=== PATIENT | male | born 1955 | race Caucasian/White ===

== ENCOUNTER → 2016-08-14 | Outpatient (CLI) | payer OTHER ==
[~2016-08-14] MED LIST: ASPI81TA28 PO; IBUP1CAP9 PO; IRON PO; JNV100 PO; LISINOPRIL-HCTZ PO; LPT40 PO; METF-384 PO; METH1TAB66 PO; MULTTAB PO; OMEP20CA9 PO
[2016-08-14 11:24] LABS: ALKALINE PHOSPHATASE 71 U/L (45-117); ALT/SGPT 60 U/L (12-78); AST/SGOT 28 U/L (15-37); BLOOD UREA NITROGEN 18 mg/dl (7-18); BUN/CREATININE RATIO 18.2 (10-20); CALCIUM 9.6 mg/dl (8.5-10.1); CARBON DIOXIDE 27 mmol/L (21-32); CHLORIDE 101 mmol/L (98-107); CHOLESTEROL 197 mg/dl (0-200); CHOLESTEROL/HDL RATIO 5.3; CREATININE 0.97 mg/dl (0.60-1.40); GLUCOSE 168 mg/dl (70-99); HDL CHOLESTEROL 37 mg/dl; POTASSIUM 3.9 mmol/L (3.5-5.1); SODIUM 139 mmol/L (136-145); TRIGLYCERIDES 674 mg/dl (0-150)
[2016-08-14 11:42] LABS: ESTIMATED AVERAGE GLUCOSE 209 mg/dl; HA1C FLAG Normal (Normal)
== END | disposition home or self-care (01) ==
LOC: C.LAB 09:46
PROVIDERS: ATTEND Internal Medicine
DX: E11.9 Type 2 diabetes mellitus without complications (principal); I10 Essential (primary) hypertension; E78.5 Hyperlipidemia, unspecified

== ENCOUNTER 2018-08-26 11:58 | Inpatient (IN) ==
[2018-08-26 12:56] LABS: Basophils # (auto) 0.04 K/uL (0-0.2); Basophils % (auto) 0.6 %; Eosinophils # (auto) 0.13 K/uL (0-0.5); Eosinophils % (auto) 1.9 %; Hematocrit (blood only) 41.3 % (42-52); Hemoglobin 13.7 g/dL (14.0-18.0); Immature Granulocytes # (auto) 0.01 K/uL (0.00-0.02); Immature Granulocytes % (auto) 0.1 %; Mean Corpuscular Hgb Conc 33.2 g/dL (32-36); Mean Corpuscular Volume 94.5 fL (80-100); Monocytes # (auto) 0.32 K/uL (0.11-0.59); Monocytes % (auto) 4.7 %; Neutrophils # (auto) 4.17 K/uL (1.4-6.5); Neutrophils % (auto) 61.7 %; Platelet Count 227 K/uL (130-400); RDW Coefficient of Variation 13.9 % (11.5-14.5); RDW Standard Deviation 47.8 fL (36.4-46.3); Red Blood Count 4.37 M/uL (4.7-6.1); White Blood Count 6.77 K/uL (4.8-10.8)
--- NOTE | 2018-08-26 13:01 | XRay Report ---
XR chest 1V portable CLINICAL HISTORY: Chest Pain COMPARISON STUDY: No previous studies for comparison. FINDINGS: Lung volumes are normal. There is no pneumothorax or pleural effusion. There is no consolid ation. Note is made of moderate cardiomegaly without evidence for pulmonary edema. IMPRESSION: 1. No acute cardiopulmonary findings. 2. Moderate cardiomegaly. Electronically signed by: Devon Sloan M.D. 08/26/2018 1:00 PM
[2018-08-26 13:06] LABS: INR 1.2 (0.9-1.1); Partial Thromboplastin Ratio 0.9; Partial Thromboplastin Time 23.7 Seconds (21.0-31.0); Prothrombin Time 12.4 Seconds (9.0-12.0)
[2018-08-26 13:14] LABS: Albumin Level 3.3 gm/dl (3.4-5.0); BUN Creatinine Ratio 15.1 (10-20); Calcium 8.7 mg/dl (8.5-10.1); Creatinine Clr Calc Pharmacy 79.6 ml/min; Est GFR (African American) 81.7; Est GFR (Non-African American) 70.5; Potassium 3.7 mmol/L (3.5-5.1)
[2018-08-26 13:24] LABS: Bilirubin,Total 0.5 mg/dl (0.2-1); Globulin 3.2 gm/dl (2.5-4.0); Total Protein 6.5 gm/dl (6.4-8.2); Troponin I 0.088 ng/ml (0-0.045)
--- NOTE | 2018-08-26 15:44 | Emergency Department Note ---
Entered by Marium Mcmillan acting as a scribe for History of Present Illness General Chief complaint: Cardiac Assessment Stated complaint: REF BY CARDIO HEART FAILURE SOB EDEMA Time Seen by Provider: 08/26/18 12:14 Source: patient History of Present Illness Onset (ago): day(s) (a few days ago) Location: chest Pain Consistency: + other (worsening) Quality: + other (shortness of breath) Exacerbated By: + other (lying flat) Associated symptoms: + denies other symptoms (abdominal pain) and + other (increased leg swelling, feeling bloated, increased weight); no chest pain and no fever/chills The patient is a 63 year old male who presents to the Emergency Room with complaints of worsening shortness of breath starting a few days ago. The patient states that he has a history of a heart attack. He states that at the time he didnt even know he had had one. He reports that for the last few days he has been having a harder time breathing and increased swelling in his legs. He states that his shortness of breath is worse when lying flat. He states that he went to Dr. Olguin today and they sent him here because they think that he needs to be admitted. The patient complains of feeling bloated and increased weight. The patient denies chest pain, abdominal pain, fever, chills, and missing his Lasix or Spironolactone. Home Medications Home Medications Medication Instructions Recorded Confirmed Type Cbd Oil 30 mg PO DAILY 08/26/18 08/26/18 History Hemp 170 mg PO DAILY 08/26/18 08/26/18 History aspirin [Aspir-81] 81 mg PO DAILY 08/26/18 08/26/18 History atorvastatin 40 mg PO DAILY 08/26/18 08/26/18 History fenofibrate nanocrystallized 145 mg PO DAILY 08/26/18 08/26/18 History furosemide 40 mg PO BID 08/26/18 08/26/18 History insulin glargine [Lantus Solostar 50 unit SUBCUT DAILY 08/26/18 08/26/18 History U-100 Insulin] [id number] 2 cap PO DAILY 08/26/18 08/26/18 History [krill oil] lisinopril 20 mg PO DAILY 08/26/18 08/26/18 History metformin 500 mg PO BID 08/26/18 08/26/18 History methylcellulose (laxative) [Fiber 500 mg PO BID 08/26/18 08/26/18 History Laxative (methylcellulo)] metoprolol succinate 25 mg PO DAILY 08/26/18 08/26/18 History multivitamin 1 tab PO DAILY 08/26/18 08/26/18 History omeprazole 20 mg PO HS 08/26/18 08/26/18 History spironolactone 12.5 mg PO BID 08/26/18 08/26/18 History trazodone 100 mg PO HS 08/26/18 08/26/18 History Allergies Allergy/AdvReac Type Severity Reaction Status Date / Time No Known Allergies Allergy Verified 08/26/18 14:09 Past Med/Surg History Surgical History Fracture of fibula, proximal (Resolved) s/p repair Family History Other Heart disease Hypertension Social History Preferred Language: Turkish Communication Ability: Effective 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 and A total of 10 systems reviewed and were otherwise negative Physical Exam Vital Signs Vital Signs - 24 hr 08/26/18 12:07 08/26/18 13:21 08/26/18 16:07 Temperature 36.7 C Temperature Source Oral Sepsis Recent Fever Within 48 Hours No Sepsis New/Unexplained Change in Mental Status No Sepsis Action Taken by Nursing No Action Required Pulse Rate 111 H 103 H Pulse Rate [Left Brachial] Pulse Rate [Right Finger] 103 H Pulse Rhythm [Right Finger] Regular Pulse Strength [Right Finger] Normal Respiratory Rate 22 16 16 Respiratory Effort / Characteristics Non-Labored Non-Labored Respiratory Depth Normal Normal Respiratory Pattern Regular Regular Blood Pressure 111/77 130/87 Blood Pressure [Right Arm] 110/80 Blood Pressure Mean 88 Blood Pressure Mean [Right Arm] 90 Blood Pressure Position Sitting Blood Pressure Position [Right Arm] Lying Pulse Oximetry 97 96 95 Oxygen Delivery Method Room Air Room Air Room Air 08/26/18 16:25 08/26/18 19:20 08/26/18 19:23 Temperature 36.8 C 36.7 C Temperature Source Oral Oral Sepsis Recent Fever Within 48 Hours Sepsis New/Unexplained Change in Mental Status Sepsis Action Taken by Nursing Pulse Rate Pulse Rate [Left Brachial] Pulse Rate [Right Finger] 105 H 98 H Pulse Rhythm [Right Finger] Regular Pulse Strength [Right Finger] Normal Respiratory Rate 20 19 Respiratory Effort / Characteristics Non-Labored Spontaneous SOB on Exertion SOB on Exertion Respiratory Depth Normal Normal Normal Respiratory Pattern Regular Regular Blood Pressure Blood Pressure [Right Arm] 125/86 128/76 Blood Pressure Mean Blood Pressure Mean [Right Arm] 99 93 Blood Pressure Position Blood Pressure Position [Right Arm] Sitting Lying Pulse Oximetry 97 94 Oxygen Delivery Method Room Air Room Air 08/26/18 23:05 08/26/18 23:55 08/27/18 04:00 Temperature 37.0 C 36.8 C Temperature Source Oral Oral Sepsis Recent Fever Within 48 Hours Sepsis New/Unexplained Change in Mental Status Sepsis Action Taken by Nursing Pulse Rate Pulse Rate [Left Brachial] Pulse Rate [Right Finger] 95 H 98 H Pulse Rhythm [Right Finger] Pulse Strength [Right Finger] Respiratory Rate 18 18 Respiratory Effort / Characteristics Non-Labored Spontaneous Respiratory Depth Normal Normal Normal Respiratory Pattern Regular Blood Pressure Blood Pressure [Right Arm] 96/58 L 102/76 Blood Pressure Mean Blood Pressure Mean [Right Arm] 70 84 Blood Pressure Position Blood Pressure Position [Right Arm] Lying Sitting Pulse Oximetry 97 96 Oxygen Delivery Method Room Air Room Air 08/27/18 08:00 Temperature 36.8 C Temperature Source Oral Sepsis Recent Fever Within 48 Hours Sepsis New/Unexplained Change in Mental Status Sepsis Action Taken by Nursing Pulse Rate Pulse Rate [Left Brachial] 96 H Pulse Rate [Right Finger] Pulse Rhythm [Right Finger] Pulse Strength [Right Finger] Respiratory Rate 16 Respiratory Effort / Characteristics Respiratory Depth Respiratory Pattern Blood Pressure Blood Pressure [Right Arm] 102/79 Blood Pressure Mean Blood Pressure Mean [Right Arm] 86 Blood Pressure Position Blood Pressure Position [Right Arm] Semi-fowlers Pulse Oximetry 93 Oxygen Delivery Method Room Air GENERAL: Patient is awake, alert, and in no acute distress. Patient is resting comfortably and showing no signs of anxiety. EYES: The conjunctivae are clear. The pupils are round and reactive. EARS, NOSE, MOUTH AND THROAT: The nose is without any evidence of deformity. Mucous membranes are moist. Tongue is midline. NECK: The neck is nontender and supple. RESPIRATORY: Diminished throughout with rales at both bases. CARDIOVASCULAR: Regular rate and rhythm noted. There are no murmurs rubs or gallops. Normal S1, normal S2. GASTROINTESTINAL: The abdomen is soft. Bowel sounds are present in all quadrants. Abdomen is nontender. MUSCULOSKELETAL/EXTREMITIES: There is no evidence of gross deformity. Full range of motion is noted in the hips and shoulders. SKIN: There is no obvious evidence of any rash. Bialteral pedal edema was noted. There is no petechiae, pallor or cyanosis noted. NEUROLOGIC: Patient is awake alert and oriented x3. Course 1219: The patient was evaluated in room A10, and a complete history and physical examination were performed. 1425: I reviewed the patient's case with YAMILA Rose. She will evaluate the patient for further management. 1432: I reevaluated the patient and updated him on his test results. I discussed the treatment plan with him. He verbally agrees and understands. Consultations Consultation #1: I reviewed the patient's case with YAMILA Rose. She will evaluate the patient for further management. Time: 14:25 Administered Medications Aspirin (Ecotrin Ectab) 81 mg PO DAILY LOLLY Stop: 09/26/18 08:59 Last Admin: 08/27/18 08:14 Dose: 81 mg Documented by: [id number] Atorvastatin Calcium (Lipitor) 40 mg PO DAILY LOLLY Stop: 09/26/18 08:59 Last Admin: 08/27/18 08:15 Dose: 40 mg Documented by: [id number] Enoxaparin Sodium (Lovenox) 40 mg SQ Q24H LOLLY Stop: 09/25/18 20:59 Last Admin: 08/26/18 20:40 Dose: 40 mg Documented by: [id number] Fenofibrate (Tricor) 145 mg PO DAILY LOLLY Stop: 09/26/18 08:59 Last Admin: 08/27/18 08:15 Dose: 145 mg Documented by: [id number] Fish Oil (Ponemah-3 (Purified Fish Oil)) 2 gm PO DAILY LOLLY Stop: 09/26/18 08:59 Last Admin: 08/27/18 08:14 Dose: 2 gm Documented by: [id number] Furosemide 40 mg/ Syringe 4 mls @ 4 mls/min IV BID17 LOLLY Stop: 09/25/18 15:44 Last Admin: 08/27/18 08:14 Dose: 4 mls/min Documented by: [id number] Admin: 08/26/18 18:15 Dose: Not Given Documented by: [id number] Admin: 08/26/18 15:54 Dose: 4 mls/min Documented by: [id number] Insulin Aspart (Novolog Flexpen) 0 units SC ACHS LOLLY Stop: 09/25/18 20:59 Last Admin: 08/27/18 08:18 Dose: 7 units Documented by: [id number] Cosigned by: [id number] Admin: 08/26/18 20:42 Dose: Not Given Documented by: [id number] Cosigned by: [id number] Insulin Glargine (Lantus Solostar Pen) 0 - 20 units SC BID LOLLY Stop: 09/25/18 20:59 Last Admin: 08/27/18 08:17 Dose: Not Given Documented by: [id number] Cosigned by: [id number] Admin: 08/26/18 20:44 Dose: Not Given Documented by: [id number] Cosigned by: [id number] Lisinopril (Zestril) 20 mg PO DAILY LOLLY Stop: 09/26/18 08:59 Last Admin: 08/27/18 08:15 Dose: 20 mg Documented by: [id number] Methylcellulose (Citrucel) 15 gm PO BID LOLLY Stop: 09/25/18 20:59 Last Admin: 08/27/18 08:19 Dose: 15 gm Documented by: [id number] Admin: 08/26/18 20:43 Dose: 15 gm Documented by: [id number] Metoprolol Succinate (Toprol Xl) 25 mg PO DAILY [facility] Stop: 09/26/18 08:59 Last Admin: 08/27/18 08:16 Dose: 25 mg Documented by: [id number] Multivitamins (Multivitamin Tab) 1 tab PO DAILY LOLLY Stop: 09/26/18 08:59 Last Admin: 08/27/18 08:16 Dose: 1 tab Documented by: [id number] Cbd 30mg / Hemp 170mg Cap: Non- Formulary Patient's Own Med 1 ea PO DAILY [facility]; Protocol Stop: 09/26/18 08:59 Last Admin: 08/27/18 08:14 Dose: 1 tab Documented by: [id number] Pantoprazole Sodium (Protonix) 40 mg PO [facility] Stop: 09/25/18 20:59 Last Admin: 08/26/18 20:41 Dose: 40 mg Documented by: [id number] Potassium Chloride (Klor-Con M10) 10 meq PO BID17 [facility] Stop: 09/25/18 16:59 Last Admin: 08/27/18 08:49 Dose: 10 meq Documented by: [id number] Admin: 08/26/18 15:54 Dose: 10 meq Documented by: [id number] Spironolactone (Aldactone) 12.5 mg PO BID [facility] Stop: 09/25/18 20:59 Last Admin: 08/27/18 08:15 Dose: 12.5 mg Documented by: [id number] Admin: 08/26/18 20:41 Dose: 12.5 mg Documented by: [id number] Trazodone HCl (Desyrel) 100 mg PO [facility] Stop: 09/25/18 20:59 Last Admin: 08/26/18 20:42 Dose: 100 mg Documented by: [id number] Discontinued Medications Furosemide (Lasix) Confirm Administered Dose 40 mg IV .STK-MED ONE Stop: 08/26/18 15:49 Last Admin: 08/26/18 15:55 Dose: Not Given Documented by: [id number] Non-Formulary Medication (Hemp) 170 mg PO DAILY [facility] Stop: 09/25/18 16:59 Last Admin: 08/26/18 18:17 Dose: Not Given Documented by: [id number] Potassium Chloride (Klor-Con M10) Confirm Administered Dose 10 meq PO .STK-MED ONE Stop: 08/26/18 15:51 Last Admin: 08/26/18 15:54 Dose: Not Given Documented by: [id number] Medical Decision Making Differential Diagnosis Etiologies such as pneumonia, COPD, reactive airway disease, CHF, cardiac ischemia, pulmonary embolism, pneumothorax, musculoskeletal, infections, gastrointestinal, as well as others were entertained. Medical Records Attestation: I reviewed the patient's medical records. Home Medications Current Medication List: was personally reviewed by me Laboratory Data Attestation: I reviewed the patient's lab results. Result diagrams: 08/27/18 05:29 04/02/19 05:29 Lab Results 08/26/18 08/26/18 08/26/18 Range/Units 12:39 12:39 12:44 WBC 6.77 (4.8-10.8) K/uL RBC 4.37 L (4.7-6.1) M/uL Hgb 13.7 L (14.0-18.0) g/dL Hct 41.3 L (42-52) % MCV 94.5 (80-100) fL MCH 31.4 (25-34) pg MCHC 33.2 (32-36) g/dL RDW Std Deviation 47.8 H (36.4-46.3) fL RDW Coeff of Cori 13.9 (11.5-14.5) % Plt Count 227 (130-400) K/uL MPV 10.0 (7.4-10.4) fL Immature Gran % (Auto) 0.1 % Neut % (Auto) 61.7 % Lymph % (Auto) 31.0 % [place] % (Auto) 4.7 % Eos % (Auto) 1.9 % Baso % (Auto) 0.6 % Immature Gran # (Auto) 0.01 (0.00-0.02) K/uL Neut # (Auto) 4.17 (1.4-6.5) K/uL Lymph # (Auto) 2.10 (1.2-3.4) K/uL [place] # (Auto) 0.32 (0.11-0.59) K/uL Eos # (Auto) 0.13 (0-0.5) K/uL Baso # (Auto) 0.04 (0-0.2) K/uL PT 12.4 H (9.0-12.0) Seconds INR 1.2 H (0.9-1.1) APTT 23.7 (21.0-31.0) Seconds PTT Ratio 0.9 Sodium 143 (136-145) mmol/L Potassium 3.7 (3.5-5.1) mmol/L Chloride 108 H (98-107) mmol/L Carbon Dioxide 28 (21-32) mmol/L Anion Gap 7.0 (3-11) BUN 17 (7-18) mg/dl Creatinine 1.12 (0.6-1.4) mg/dl Est Cr Clr Drug Dosing 79.6 ml/min Est GFR ( Amer) 81.7 Est GFR (Non-Af Amer) 70.5 BUN/Creatinine Ratio 15.1 (10-20) Glucose 125 H (70-99) mg/dl POC Glucose (70-99) Calcium 8.7 (8.5-10.1) mg/dl Total Bilirubin 0.5 (0.2-1) mg/dl AST 33 (15-37) U/L ALT 65 (12-78) U/L Alkaline Phosphatase 55 (45-117) U/L Troponin I 0.088 H* (0-0.045) ng/ml NT-Pro-B Natriuret Pep (0-900) pg/ml Total Protein 6.5 (6.4-8.2) gm/dl Albumin 3.3 L (3.4-5.0) gm/dl Globulin 3.2 (2.5-4.0) gm/dl Albumin/Globulin Ratio 1.0 (0.9-2) Lipase 259 (73-393) U/L 08/26/18 08/26/18 08/26/18 Range/Units 12:44 16:51 18:38 WBC (4.8-10.8) K/uL RBC (4.7-6.1) M/uL Hgb (14.0-18.0) g/dL Hct (42-52) % MCV (80-100) fL MCH (25-34) pg MCHC (32-36) g/dL RDW Std Deviation (36.4-46.3) fL RDW Coeff of Cori (11.5-14.5) % Plt Count (130-400) K/uL MPV (7.4-10.4) fL Immature Gran % (Auto) % Neut % (Auto) % Lymph % (Auto) % [place] % (Auto) % Eos % (Auto) % Baso % (Auto) % Immature Gran # (Auto) (0.00-0.02) K/uL Neut # (Auto) (1.4-6.5) K/uL Lymph # (Auto) (1.2-3.4) K/uL [place] # (Auto) (0.11-0.59) K/uL Eos # (Auto) (0-0.5) K/uL Baso # (Auto) (0-0.2) K/uL PT (9.0-12.0) Seconds INR (0.9-1.1) APTT (21.0-31.0) Seconds PTT Ratio Sodium (136-145) mmol/L Potassium (3.5-5.1) mmol/L Chloride (98-107) mmol/L Carbon Dioxide (21-32) mmol/L Anion Gap (3-11) BUN (7-18) mg/dl Creatinine (0.6-1.4) mg/dl Est Cr Clr Drug Dosing ml/min Est GFR ( Amer) Est GFR (Non-Af Amer) BUN/Creatinine Ratio (10-20) Glucose (70-99) mg/dl POC Glucose 108 H (70-99) Calcium (8.5-10.1) mg/dl Total Bilirubin (0.2-1) mg/dl AST (15-37) U/L ALT (12-78) U/L Alkaline Phosphatase (45-117) U/L Troponin I 0.095 H* (0-0.045) ng/ml NT-Pro-B Natriuret Pep 4849 H (0-900) pg/ml Total Protein (6.4-8.2) gm/dl Albumin (3.4-5.0) gm/dl Globulin (2.5-4.0) gm/dl Albumin/Globulin Ratio (0.9-2) Lipase (73-393) U/L 08/26/18 08/27/18 08/27/18 Range/Units 20:42 00:07 05:29 WBC 6.70 (4.8-10.8) K/uL RBC 4.38 L (4.7-6.1) M/uL Hgb 13.3 L (14.0-18.0) g/dL Hct 41.3 L (42-52) % MCV 94.3 (80-100) fL MCH 30.4 (25-34) pg MCHC 32.2 (32-36) g/dL RDW Std Deviation 48.2 H (36.4-46.3) fL RDW Coeff of Cori 13.9 (11.5-14.5) % Plt Count 215 (130-400) K/uL MPV 9.9 (7.4-10.4) fL Immature Gran % (Auto) % Neut % (Auto) % Lymph % (Auto) % [place] % (Auto) % Eos % (Auto) % Baso % (Auto) % Immature Gran # (Auto) (0.00-0.02) K/uL Neut # (Auto) (1.4-6.5) K/uL Lymph # (Auto) (1.2-3.4) K/uL [place] # (Auto) (0.11-0.59) K/uL Eos # (Auto) (0-0.5) K/uL Baso # (Auto) (0-0.2) K/uL PT (9.0-12.0) Seconds INR (0.9-1.1) APTT (21.0-31.0) Seconds PTT Ratio Sodium (136-145) mmol/L Potassium (3.5-5.1) mmol/L Chloride (98-107) mmol/L Carbon Dioxide (21-32) mmol/L Anion Gap (3-11) BUN (7-18) mg/dl Creatinine (0.6-1.4) mg/dl Est Cr Clr Drug Dosing ml/min Est GFR ( Amer) Est GFR (Non-Af Amer) BUN/Creatinine Ratio (10-20) Glucose (70-99) mg/dl POC Glucose 122 H (70-99) Calcium (8.5-10.1) mg/dl Total Bilirubin (0.2-1) mg/dl AST (15-37) U/L ALT (12-78) U/L Alkaline Phosphatase (45-117) U/L Troponin I 0.119 H* (0-0.045) ng/ml NT-Pro-B Natriuret Pep (0-900) pg/ml Total Protein (6.4-8.2) gm/dl Albumin (3.4-5.0) gm/dl Globulin (2.5-4.0) gm/dl Albumin/Globulin Ratio (0.9-2) Lipase (73-393) U/L 08/27/18 08/27/18 Range/Units 05:29 07:09 WBC (4.8-10.8) K/uL RBC (4.7-6.1) M/uL Hgb (14.0-18.0) g/dL Hct (42-52) % MCV (80-100) fL MCH (25-34) pg MCHC (32-36) g/dL RDW Std Deviation (36.4-46.3) fL RDW Coeff of Cori (11.5-14.5) % Plt Count (130-400) K/uL MPV (7.4-10.4) fL Immature Gran % (Auto) % Neut % (Auto) % Lymph % (Auto) % [place] % (Auto) % Eos % (Auto) % Baso % (Auto) % Immature Gran # (Auto) (0.00-0.02) K/uL Neut # (Auto) (1.4-6.5) K/uL Lymph # (Auto) (1.2-3.4) K/uL [place] # (Auto) (0.11-0.59) K/uL Eos # (Auto) (0-0.5) K/uL Baso # (Auto) (0-0.2) K/uL PT (9.0-12.0) Seconds INR (0.9-1.1) APTT (21.0-31.0) Seconds PTT Ratio Sodium 143 (136-145) mmol/L Potassium 3.7 (3.5-5.1) mmol/L Chloride 106 (98-107) mmol/L Carbon Dioxide 30 (21-32) mmol/L Anion Gap 7.0 (3-11) BUN 19 H (7-18) mg/dl Creatinine 1.13 (0.6-1.4) mg/dl Est Cr Clr Drug Dosing 78.9 ml/min Est GFR ( Amer) 80.9 Est GFR (Non-Af Amer) 69.8 BUN/Creatinine Ratio 17.0 (10-20) Glucose 84 (70-99) mg/dl POC Glucose 83 (70-99) Calcium 8.7 (8.5-10.1) mg/dl Total Bilirubin (0.2-1) mg/dl AST (15-37) U/L ALT (12-78) U/L Alkaline Phosphatase (45-117) U/L Troponin I (0-0.045) ng/ml NT-Pro-B Natriuret Pep (0-900) pg/ml Total Protein (6.4-8.2) gm/dl Albumin (3.4-5.0) gm/dl Globulin (2.5-4.0) gm/dl Albumin/Globulin Ratio (0.9-2) Lipase (73-393) U/L Imaging Data Radiologist's Impression: Radiology results as stated below per my review and the radiologist's interpretation: XR chest 1V portable CLINICAL HISTORY: Chest Pain COMPARISON STUDY: No previous studies for comparison. FINDINGS: Lung volumes are normal. There is no pneumothorax or pleural effusion. There is no consolidation. Note is made of moderate cardiomegaly without evidence for pulmonary edema. IMPRESSION: 1. No acute cardiopulmonary findings. 2. Moderate cardiomegaly. Electronically signed by: Devon Sloan M.D. 08/26/2018 1:00 PM ECG Data Attestation: I personally reviewed and interpreted this ECG as follows: Indication: SOB/dyspnea Rate (beats per minute): 104 Rhythm: sinus tachycardia Findings: + ST depression (lateral); no PAC, no PVC and no ectopy Comparison ECG Date: from (04/20/2014) Change: the following changes noted Blood Pressure Blood Pressure Findings: Normal blood pressure Blood Pressure Disposition: did not require urgent referral MDM Narrative The patient is a 63-year-old male who presented to the emergency department from the cardiology office for an evaluation of orthopnea dyspnea on exertion lower extremity edema as well as vague chest discomfort. The patient was found to have an EKG with ST segment abnormalities but it appears similar to previous. I discussed the patient's laboratory and radiographic studies with him. He was found to have a mildly elevated troponin. For this reason I discussed his case with the on-call [facility] hospitalist group. They have agreed to evaluate the patient in the emergency department for further management and disposition. Impression & Plan Chest pain, FORRESTER (dyspnea on exertion), Elevated troponin Discharge Plan Visit Data *Final* Discharge Date/Time: 08/26/18 16:07 Chief Complaint: Cardiac Assessment Stated Complaint: REF BY CARDIO HEART FAILURE SOB EDEMA ED Provider: Mars Abdul Discharge Problem: Chest pain, FORRESTER (dyspnea on exertion), Elevated troponin Patient Disposition: Admitted As Inpatient Discharge Instructions Interventions: ED Discharge Assessment Last Done: 08/26/18 16:07 Discharge Problem: Chest pain Qualifiers: Chest pain type: unspecified Qualified Code(s): R07.9 - Chest pain, unspecified The scribe's documentation has been prepared under my direction and personally reviewed by me in its entirety. I confirm that the note above accurately reflects all work, treatment, procedures, and medical decision making performed by me.
[2018-08-26] MEDS ORDERED: FUROSEMIDE 40 MG/4 ML VIAL IV ONE (15:48)
[2018-08-26] MEDS ORDERED: POTASSIUM CHLORIDE 10 MEQ TABCR PO ONE (15:50)
[2018-08-26] MEDS: POTASSIUM CHLORIDE 10 MEQ TABCR PO SCH (15:54)
[2018-08-26] MEDS: FUROSEMIDE 40 MG in SYRINGE 0 ML IV SCH ×2 (15:54→18:15)
--- NOTE | 2018-08-26 15:54 | History & Physical Report ---
Date of Service August 26, 2018 Assessment & Plan (1) Combined systolic and diastolic heart failure, acute: (2) Idiopathic cardiomyopathy: This is a 63yo M with a PMH of mixed systolic and diastolic HF, DM II, HTN, HLD, GERD and MDD who presents with dyspnea at rest and BLE edema x 4 days and was found to have acutely decompensated CHF. -Patient with 10 lb weight gain, dyspnea on exertion, orthopnea, PND, BLE edema -BNP elevated at 4,849, troponin elevated at 0.088 -EKG with sinus tachycardia, non-specific ST and T wave changes (no change). CXR with cardiomegaly, no overt pulmonary edema -Echo from Jun 2018: Mildly dilated LV chamber size with normal wall thickness. Severely reduced LV systolic function with severe global hypokinesis. Calculated LV ejection Fraction = 24% (bi-plane method of discs). Grade III diastolic dysfunction (restrictive physiology). Pulmonary hypertension is present. -IV Lasix 40mg BID, continue PO spironolactone -Trend troponin, repeat labs and ECG in AM -Restrict fluid intake, monitor daily weights -Cardiology consulted (3) Elevated troponin: Troponin elevated at 0.088 in the setting of acute CHF -No chest pain or EKG changes -Discussed with cardiology. We will continue to trend troponin but no need to initiate IV heparin at this time (4) Type 2 diabetes mellitus: A1c of 7.8 in Jun 2018 -Hold home agents -Basal/bolus insulin per protocol while in-patient -BSG AC HS (5) Hypertension: Normotensive. Continue lisinopril, Toprol (6) Hx of supraventricular tachycardia: No SVT on initial EKG. -Monitor on telemetry. Continue Toprol (7) Hyperlipidemia: Continue statin (8) GERD (gastroesophageal reflux disease): Continue PPI (9) MDD (major depressive disorder): Continue CBD/Hemp supplement once verified and labeled by pharmacy DVT Ppx: SQ lovenox Code status: FULL PCP: Angelina Dispo: Observation telemetry. Plan to return home once medically stable. Patient seen in collaboration with Dr. Flores. Please see addendum. History of Present Illness Chief Complaint: dyspnea on exertion Primary Care Provider: Annika Alfaro DO This is a 63yo M with a PMH of mixed systolic and diastolic HF, DM II, HTN, HLD, GERD and MDD who presents with dyspnea at rest and BLE edema x 4 days. Patient was diagnosed with decompensated heart failure in June 2018 and is a patient of Dr. Olguin. TTE from this time demonstrates severely reduced left ventricular systolic function with severe global hypokinesis and EF of 24%. Also with grade 3 diastolic dysfunction and pulmonary hypertension. Underwent nuclear stress testing for further definition of cardiomyopathy and stress test demonstrated large fixed perfusion defect without ischemia. He had no anginal symptoms at fo llow-up appointment. Was seen in clinic by YAMILA Brown last Sunday and was found to be in acute decompensated heart failure, with dyspnea on exertion and a 10 pound weight gain. Lasix dose was increased to 40 mg p.o. twice daily as well as spironolactone increased to 12.5 mg twice daily over the weekend. Dyspnea on exertion has worsened over the weekend and patient has developed nonproductive cough, orthopnea, PND and worsening bilateral lower extremity swelling up to hips. Was sent in from clinic today by YAMILA Brown for further management with IV Lasix. Patient has a strong family history of heart failure and possible nonischemic cardiomyopathy. Was referred to genetic counselor for testing, but as of 08/23/18 no significant genetic changes were identified that have a known association to increased risk for hereditary cardiomyopathy. Patient is visibly short of breath, with HR of 103. Oxygen saturation is 96% on room air. Has been eating reduced sodium diet but not limiting fluids. H/o heavy etoh use but reportedly quit in Jun 2018. No fever, chills, lightheadedness, headache, near- syncope, chest pain, palpitations, wheezing, nausea, vomiting, abdominal pain, diarrhea or constipation. Allergies Allergy/AdvReac Type Severity Reaction Status Date / Time No Known Allergies Allergy Verified 08/26/18 14:09 Home Medications Home Medications Medication Instructions Recorded Confirmed Type Cbd Oil 30 mg PO DAILY 08/26/18 08/26/18 History Hemp 170 mg PO DAILY 08/26/18 08/26/18 History aspirin [Aspir-81] 81 mg PO DAILY 08/26/18 08/26/18 History atorvastatin 40 mg PO DAILY 08/26/18 08/26/18 History fenofibrate nanocrystallized 145 mg PO DAILY 08/26/18 08/26/18 History furosemide 40 mg PO BID 08/26/18 08/26/18 History insulin glargine [Lantus Solostar 50 unit SUBCUT DAILY 08/26/18 08/26/18 History U-100 Insulin] [id number] 2 cap PO DAILY 08/26/18 08/26/18 History [krill oil] lisinopril 20 mg PO DAILY 08/26/18 08/26/18 History metformin 500 mg PO BID 08/26/18 08/26/18 History methylcellulose (laxative) [Fiber 500 mg PO BID 08/26/18 08/26/18 History Laxative (methylcellulo)] metoprolol succinate 25 mg PO DAILY 08/26/18 08/26/18 History multivitamin 1 tab PO DAILY 08/26/18 08/26/18 History omeprazole 20 mg PO HS 08/26/18 08/26/18 History spironolactone 12.5 mg PO BID 08/26/18 08/26/18 History trazodone 100 mg PO HS 08/26/18 08/26/18 History Past Med/Surg History Surgical History Fracture of fibula, proximal (Resolved) s/p repair Family History Other Heart disease Hypertension Social History Preferred Language: Kiswahili Communication Ability: Effective Eyeglass Lens Grinder Required: No Beliefs That Will Affect Care: None marital status: Current Living Situation: Alone Current Living Situation Comment: live alone current occupational status: unemployed Other Information That Helps Us Care for You: No Feels Safe at Home: Yes Safety Concerns: Feels Safe At This Time Smoking Status: Never smoker Hx Alcohol Use: Yes Review of Systems All systems reviewed & are unremarkable except as noted in HPI & below Physical Exam Vital Signs (Past 24 Hours): Last Vital Signs Temp 36.7 C 08/26/18 12:07 Pulse 103 H 08/26/18 13:21 Resp 16 08/26/18 13:21 BP 110/80 08/26/18 13:21 Pulse Ox 96 08/26/18 13:21 Physical Exam: General Appearance: WD/WN, mild distress due to SOB when speaking, improved with sitting upright Head: normocephalic, atraumatic Eyes: normal inspection, PERRL, EOMI ENT: hearing grossly normal, pharynx normal (dry mucous membranes) Neck: supple, no JVD, no adenopathy Respiratory/Chest: Decreased air movement, bibasilar rales. No wheezes or rhonci. No respiratory distress or accessory muscle use Cardiovascular: tachycardic, regular rate, no murmur, normal peripheral pulses, 2+ pitting edema bilaterally to knee Abdomen/GI: normal bowel sounds, soft, non-tender to palpation Extremities/Musculoskelatal: normal inspection, no calf tenderness, normal capillary refill Neurologic/Psych: alert, normal mood/affect, oriented x 3 Skin: normal color, warm/dry Results & Data Laboratory Results Short CBC 08/26/18 Range/Units 12:39 WBC 6.77 (4.8-10.8) K/uL Hgb 13.7 L (14.0-18.0) g/dL Hct 41.3 L (42-52) % Plt Count 227 (130-400) K/uL BMP 08/26/18 12:44 Sodium 143 Potassium 3.7 Chloride 108 H Carbon Dioxide 28 BUN 17 Creatinine 1.12 Glucose 125 H Calcium 8.7 Cardiac Enzymes 08/26/18 Range/Units 12:44 Troponin I 0.088 H* (0-0.045) ng/ml Liver Function 08/26/18 Range/Units 12:44 Total Bilirubin 0.5 (0.2-1) mg/dl AST 33 (15-37) U/L ALT 65 (12-78) U/L Alkaline Phosphatase 55 (45-117) U/L Albumin 3.3 L (3.4-5.0) gm/dl Diagnostic Findings CXR: IMPRESSION: 1. No acute cardiopulmonary findings. 2. Moderate cardiomegaly. ECG Rhythm: sinus tachycardia Change: no significant change Additional Comments: non specific T wave abnormality in lateral leads Code Status & VTE Plan Code Status FULL Supervising Physician Co-Signing Physician Notes Patient is a 63-year-old male with history of CHF, DM II, depression and other problems presents with history of worsening shortness of breath, bilateral lower extremity edema, weight gain, orthopnea, PND which have been gradually worsening since 4 days duration. His last echo in 10/14/2018 showed severe global hypokinesis with EF of 24%. His recent stress test showed large fixed perfusion defect without ischemia. Currently he denies any chest pain, dizziness, nausea, fever or chills. Chest x-ray showed moderate cardiomegaly with no evidence of volume overload. On exam patient is moderately built and nourished, no apparent distress, normal breath sounds, +rales, S1-S2, no murmur, + tachycardia, 2-3+ b/l LE edema, alert awake and oriented, grossly no focal deficits. Patient will be admitted for management of acute on chronic CHF. Plan to start on IV Lasix 40 twice daily, continue Aldactone. Monitor I's and O's, daily weight, fluid restriction. [employer] Hcm Consultant consulted. Trend cardiac enzymes and repeat EKG in the morning. I personally reviewed the record. Patient is interviewed and examined at bedside. Patient's care is coordinated with Snow Ledezma PA-C. Please refer to the documentation above for details of patient's presentation and for discussion of other issues.
[2018-08-26] MEDS ORDERED: POLYETHYLENE (MIRALAX) 17 GM PACK PO PRN (16:36)
[2018-08-26] MEDS ORDERED: ACETAMINOPHEN 325 MG TAB PO PRN (16:36)
[2018-08-26] MEDS ORDERED: ONDANSETRON INJ 2 MG/ML 2 ML VIAL IV PRN (16:36)
[2018-08-26] MEDS ORDERED: HEMP PO SCH (17:00)
[2018-08-26] MEDS ORDERED: CBD OIL PO SCH (17:00)
[2018-08-26] MEDS ORDERED: GLUCOSE 40% GEL 15 GM TUBE PO PRN (17:09)
[2018-08-26] MEDS ORDERED: CARBOHYDRATES FOR HYPOGLYCEMIA PO PRN (17:09)
[2018-08-26] MEDS ORDERED: GLUCAGON FOR INJ 1 MG VIAL SQ PRN (17:09)
[2018-08-26] MEDS ORDERED: DEXTROSE 50% 50 ML SYRINGE IV PRN (17:09)
[2018-08-26] MEDS ORDERED: GLUCOSE 10 TABS/TUBE PO PRN (17:09)
[2018-08-26] MEDS: ENOXAPARIN INJ 40 MG/0.4 ML SYR SQ SCH (20:40)
[2018-08-26] MEDS: PANTOprazole 40 MG TAB PO SCH (20:41)
[2018-08-26] MEDS: SPIRONOLACTONE 25 MG TAB PO SCH (20:41)
[2018-08-26] MEDS: INSULIN ASPART 100 UNITS/ML 3 ML PEN SC SCH (20:42)
[2018-08-26] MEDS: TRAZODONE HCL 100 MG TAB PO SCH (20:42)
[2018-08-26] MEDS: METHYLCELLULOSE POWDER 454 GM JAR PO SCH (20:43)
[2018-08-26] MEDS: INSULIN GLARGINE SOLOSTAR 100 UNITS/ML 3 ML PEN SC SCH (20:44)
[2018-08-26] MEDS ORDERED: PNEUMOCOCCAL ADMINISTRATION CHARGE ONE (21:45)
[2018-08-26] MEDS ORDERED: PNEUMOCOCCAL POLYSACCHARIDES 25 MCG/0.5 ML VIAL/SYR IM ONE (21:45)
[2018-08-27 05:47] LABS: Hematocrit (blood only) 41.3 % (42-52); Hemoglobin 13.3 g/dL (14.0-18.0); Mean Corpuscular Hgb Conc 32.2 g/dL (32-36); Mean Corpuscular Volume 94.3 fL (80-100); Mean Platelet Volume 9.9 fL (7.4-10.4); Platelet Count 215 K/uL (130-400); RDW Coefficient of Variation 13.9 % (11.5-14.5); RDW Standard Deviation 48.2 fL (36.4-46.3); Red Blood Count 4.38 M/uL (4.7-6.1)
[2018-08-27 06:24] LABS: Calcium 8.7 mg/dl (8.5-10.1); Creatinine Clr Calc Pharmacy 78.9 ml/min; Est GFR (African American) 80.9; Est GFR (Non-African American) 69.8; Potassium 3.7 mmol/L (3.5-5.1)
[2018-08-27] MEDS: ASPIRIN 81 MG ECTAB PO SCH (08:14)
[2018-08-27] MEDS: HEMP PO SCH (08:14)
[2018-08-27] MEDS: FUROSEMIDE 40 MG in SYRINGE 0 ML IV SCH ×2 (08:14→20:15)
[2018-08-27] MEDS: OMEGA-3 (PURIFIED FISH OIL) 1 GM CAP PO SCH (08:14)
[2018-08-27] MEDS: CBD PO SCH (08:14)
[2018-08-27] MEDS: FENOFIBRATE NANOCRYSTALLIZED 145 MG TABLET PO SCH (08:15)
[2018-08-27] MEDS: SPIRONOLACTONE 25 MG TAB PO SCH ×2 (08:15→20:15)
[2018-08-27] MEDS: ATORVASTATIN 40 MG TAB PO SCH (08:15)
[2018-08-27] MEDS: METOPROLOL SUCC 25MG EXT REL TAB PO SCH (08:16)
[2018-08-27] MEDS: MULTIVITAMIN TAB PO SCH (08:16)
[2018-08-27] MEDS: INSULIN GLARGINE SOLOSTAR 100 UNITS/ML 3 ML PEN SC SCH ×2 (08:17→21:05)
[2018-08-27] MEDS: INSULIN ASPART 100 UNITS/ML 3 ML PEN SC SCH ×4 (08:18→20:27)
[2018-08-27] MEDS: METHYLCELLULOSE POWDER 454 GM JAR PO SCH ×2 (08:19→20:14)
[2018-08-27] MEDS: POTASSIUM CHLORIDE 10 MEQ TABCR PO SCH ×2 (08:49→17:00)
[2018-08-27] MEDS ORDERED: LISINOPRIL 20 MG TAB PO SCH (09:00)
--- NOTE | 2018-08-27 12:14 | Cardiology Consultation ---
Date of Consultation August 27, 2018 Assessment & Plan (1) Combined systolic and diastolic heart failure, acute: (2) Idiopathic cardiomyopathy: Patient is symptomatically improved having received 2 doses of IV furosemide. Continue current furosemide dose, 40 mg IV twice daily. Continue spironolactone dose of 2.5 mg twice daily and potassium supplementation. Continue metoprolol succinate 25 mg by mouth daily. I would speculate that his borderline sinus tachycardia is compensatory due to his low ejection fraction. He has been tolerating lisinopril. We will take this opportunity to hold his lisinopril and initiate Enstresto after 48 hrs of ACEI therapy. We will have outpatient cardiology clinic and start to work on prior authorization details so that this medication will hopefully be available for him as an outpatient. She has an apparent family history of nonischemic cardiomyopathy. He however has risk factors given his age, history of diabetes and dyslipidemia. His recent nuclear stress test suggestive of ischemic heart disease with large territory scar. After the patient's volume status is optimized, will consider proceeding with cardiac catheterization for definitive coronary anatomy this admission. Continue atorvastatin, fenofibrate, omega-3 fish oil. History of Present Illness Attending Physician: Fco Flores MD History of Present Illness Polo Quinn is a 63-year-old male seen in cardiology consultation per the request of Snow Ledezma PA-C of the [facility] hospitalist group for further management of acute on chronic heart failure with reduced ejection fraction. Patient has been seen in close outpatient congestive heart failure clinic by Lucretia Brown PA-C of our practice yesterday with noted ongoing symptoms of significant abdominal bloating, lower extremity swelling, and exertional shortness of breath that is been refractory to outpatient oral diuretic therapy. His weight had been 229 pounds on and had increased to 239 pounds as of 08/21/2018 and was 238 pounds yesterday 08/26/2018 despite increase in the furosemide dose from 20 mg daily to 40 mg daily. The patient received 40 mg of IV furosemide yesterday at 1554 and again this morning at 814 and feels markedly improved. 1.8 L of urine output recorded yesterday and conditional 1.9 L of urine output recorded thus far today. His admission weight was recorded to be 107.4 kg yesterday and he is down to 101.9 kg today. Telemetry reveals sinus rhythm in the range of 80 to 95 bpm. Past Cardiac History: The patient's cardiac history dates back to June,. An EKG performed due to concerns of shortness of breath on 07/17/2018 revealed sinus tachycardia at 102 bpm with diffuse nonspecific T wave abnormality. An echocardiogram performed 07/23/2018 revealed severe left ventricular chamber dilatation with severe global left ventricular hypokinesis, severe left ventricular systolic dysfunction, calculated LV EF 24%. Grade 3 diastolic dysfunction was noted. Mild mitral regurgitation and mild tricuspid regurgitation were noted with a calculated pulmonary artery systolic pressure that was elevated at 60 mmHg. The patient was therefore seen in acute cardiology consultation by Dr. Olguin of our practice and medication therapy was initiated. A nuclear stress test performed 08/06/2018 as an outpatient which had been interpreted by the undersigned revealed a large fixed anteroseptal, anterior, apical and inferior perfusion defect with sparing of the inferoseptal wall and anterolateral santos. The ejection fraction was corrected to be 35%. The patient is described a family history of what sounds like a nonischemic cardiomyopathy. Patient also notes history of significant alcohol intake last year when he was going through divorce. He states that he cut back on his alcohol in approximately March,. Allergies Allergy/AdvReac Type Severity Reaction Status Date / Time No Known Allergies Allergy Verified 08/26/18 14:09 Home Medications Home Medications Medication Instructions Recorded Confirmed Type Cbd Oil 30 mg PO DAILY 08/26/18 08/26/18 History Hemp 170 mg PO DAILY 08/26/18 08/26/18 History aspirin [Aspir-81] 81 mg PO DAILY 08/26/18 08/26/18 History atorvastatin 40 mg PO DAILY 08/26/18 08/26/18 History fenofibrate nanocrystallized 145 mg PO DAILY 08/26/18 08/26/18 History furosemide 40 mg PO BID 08/26/18 08/26/18 History insulin glargine [Lantus Solostar 50 unit SUBCUT DAILY 08/26/18 08/26/18 History U-100 Insulin] [id number] 2 cap PO DAILY 08/26/18 08/26/18 History [krill oil] lisinopril 20 mg PO DAILY 08/26/18 08/26/18 History metformin 500 mg PO BID 08/26/18 08/26/18 History methylcellulose (laxative) [Fiber 500 mg PO BID 08/26/18 08/26/18 History Laxative (methylcellulo)] metoprolol succinate 25 mg PO DAILY 08/26/18 08/26/18 History multivitamin 1 tab PO DAILY 08/26/18 08/26/18 History omeprazole 20 mg PO HS 08/26/18 08/26/18 History spironolactone 12.5 mg PO BID 08/26/18 08/26/18 History trazodone 100 mg PO HS 08/26/18 08/26/18 History Patient History Surgical History Fracture of fibula, proximal (Resolved) s/p repair Family History Other Heart disease Hypertension Social History Preferred Language: Mosotho Communication Ability: Effective Senior Account Representative Required: No Beliefs That Will Affect Care: None marital status: Current Living Situation: Alone Current Living Situation Comment: live alone current occupational status: unemployed Other Information That Helps Us Care for You: No Feels Safe at Home: Yes Safety Concerns: Feels Safe At This Time Smoking Status: Never smoker Hx Alcohol Use: Yes Review of Systems 10 point review of systems was reviewed and is negative the exception of that above Physical Exam Vital Signs (Past 24 Hours): Last Vital Signs Temp 36.8 C 08/27/18 08:00 Pulse 95 H 08/27/18 08:20 Resp 16 08/27/18 08:00 BP 102/79 08/27/18 08:00 Pulse Ox 93 08/27/18 08:00 Constitutional: WD/WN, vitals as above no acute distress Respiratory: no cough Auscultation: + diminished lung sounds (Decreased breath sounds bilaterally at the bases); no crackles and no rales Cardiovascular: RRR, no murmur, no edema Heart Sounds: no murmur Extremities: + edema (Patient noted lower extremity edema has improved significantly overnight) Gastrointestinal (Abdomen): normal bowel sounds, soft, nontender, no hepatosplenomegaly Neurologic: moves all extremities and awake; no focal motor deficits Results & Data Laboratory Results Cardiac Enzymes 0408/26/18 08/27/18 Range/Units 12:44 18:38 00:07 AST 33 (15-37) U/L Troponin I 0.088 H* 0.095 H* 0.119 H* (0-0.045) ng/ml Coagulation 08/26/18 Range/Units 12:39 PT 12.4 H (9.0-12.0) Seconds APTT 23.7 (21.0-31.0) Seconds CBC 08/26/18 08/27/18 Range/Units 12:39 05:29 WBC 6.77 6.70 (4.8-10.8) K/uL RBC 4.37 L 4.38 L (4.7-6.1) M/uL Hgb 13.7 L 13.3 L (14.0-18.0) g/dL Hct 41.3 L 41.3 L (42-52) % Plt Count 227 215 (130-400) K/uL Neut # (Auto) 4.17 (1.4-6.5) K/uL Lymph # (Auto) 2.10 (1.2-3.4) K/uL [place] # (Auto) 0.32 (0.11-0.59) K/uL Eos # (Auto) 0.13 (0-0.5) K/uL Baso # (Auto) 0.04 (0-0.2) K/uL Comprehensive Metabolic Panel 08/26/18 08/27/18 Range/Units 12:44 05:29 Sodium 143 143 (136-145) mmol/L Potassium 3.7 3.7 (3.5-5.1) mmol/L Chloride 108 H 106 (98-107) mmol/L Carbon Dioxide 28 30 (21-32) mmol/L BUN 17 19 H (7-18) mg/dl Creatinine 1.12 1.13 (0.6-1.4) mg/dl Glucose 125 H 84 (70-99) mg/dl Calcium 8.7 8.7 (8.5-10.1) mg/dl AST 33 (15-37) U/L ALT 65 (12-78) U/L Alkaline Phosphatase 55 (45-117) U/L Total Protein 6.5 (6.4-8.2) gm/dl Albumin 3.3 L (3.4-5.0) gm/dl Intake and Output 08/26/18 08/27/18 08/27/18 22:59 06:59 14:59 Intake Total 397 / 517 120 / 517 Output Total 900 / 1850 950 / 1850 1969 Balance -503 / -1333 -830 / -1333 -1969 Intake: Oral 397 / 517 120 / 517 Output: Urine 900 / 1850 950 / 1850 1969 Other: Weight 107.4 kg 101.9 kg Diagnostic Findings EKG performed 08/27/2018 reviewed independently revealed normal sinus rhythm at 90 bpm, nonspecific diffuse T wave flattening,Unchanged compared to 08/26/2018.
--- NOTE | 2018-08-27 13:49 | Hospitalist Progress Note ---
Date of Service August 27, 2018 Assessment & Plan (1) Combined systolic and diastolic heart failure, acute: Acute Systolic and diastolic CHF Exacerbation Idiopathic Cardiomyopathy Family H/O nonischemic Cardiomyopathy CRX: No acute cardiopulmonary findings. Moderate cardiomegaly. Last ECHO:Performed on 07/23/2018: severe LV dilatation with severe global LV hypokinesis, severe LV systolic dysfunction, EF 24%. Grade III diastolic dysfunction, Mild MR, TR, Pulm. HTN. Recent Stress Test: Ischemic heart disease with large Scar Hold PO diuretics Continue IV Lasix 40mg BID Continue Aldactone Hold Lisinopril, Plan to start on Entresto Continue Metoprolol Daily weight, I/Os, fluid restriction, Low sodium diet Monitor renal function/electrolytes Appreciate Cardiology Input Planned for Cardiac Catheterization as per Cardiology (2) Idiopathic cardiomyopathy: Management as above (3) Elevated troponin: Mild Troponin elevation in setting of acute CHF EKG changes: No acute signs of Ischemia Planned for Cardiac cath to R/O ACS Denies chest pain (4) Type 2 diabetes mellitus: A1c of 7.8 in Jun 2018 Hold home meds Continue Basal and ISS Insulin Monitor BGs (5) Hypertension: Stable Continue current meds (6) Hx of supraventricular tachycardia: Continue Metoprolol Monitor (7) Hyperlipidemia: Continue statin (8) GERD (gastroesophageal reflux disease): Continue PPI (9) MDD (major depressive disorder): Continue CBD/Hemp supplement DVT Px: SQ Lovenox Code status: Full Code Disposition: Expect to discharge home when stable Subjective Patient is seen and examined at bedside States feeling better today SOB, Orthopnea much improved Leg swelling is improving as well Denies chest pain, dizziness, nausea Offers no other complaints Physical Exam Vital Signs (Past 24 Hours): Last Vital Signs Temp 36.9 C 08/27/18 12:00 Pulse 97 H 08/27/18 12:00 Resp 20 08/27/18 12:00 BP 103/67 08/27/18 12:00 Pulse Ox 97 08/27/18 12:00 Physical Exam: Physical Exam: Vitals signs as noted above General Appearance:Moderately built and nourished, no apparent distress Head: normocephalic, Atraumatic Eyes: normal inspection, EOMI Neck: supple, Trachea midline Respiratory/Chest: Decreased breath sounds, CTA Cardiovascular: S1, S2, No murmur Abdomen/GI:Soft, Non tender, Bowel sounds present Extremities/Musculoskelatal:normal inspection, + edema Neurologic/Psych:AAOX3, grossly no focal neurological deficits Skin: normal color, warm Results & Data Laboratory Results Short CBC 08/27/18 Range/Units 05:29 WBC 6.70 (4.8-10.8) K/uL Hgb 13.3 L (14.0-18.0) g/dL Hct 41.3 L (42-52) % Plt Count 215 (130-400) K/uL BMP 08/27/18 05:29 Sodium 143 Potassium 3.7 Chloride 106 Carbon Dioxide 30 BUN 19 H Creatinine 1.13 Glucose 84 Calcium 8.7 Cardiac Enzymes 08/26/18 08/27/18 Range/Units 18:38 00:07 Troponin I 0.095 H* 0.119 H* (0-0.045) ng/ml
[2018-08-27] MEDS: ENOXAPARIN INJ 40 MG/0.4 ML SYR SQ SCH (20:14)
[2018-08-27] MEDS: PANTOprazole 40 MG TAB PO SCH (20:15)
[2018-08-27] MEDS: TRAZODONE HCL 100 MG TAB PO SCH (20:15)
[2018-08-28 06:23] LABS: Hematocrit (blood only) 39.9 % (42-52); Mean Corpuscular Hgb Conc 32.6 g/dL (32-36); Mean Corpuscular Volume 94.3 fL (80-100); Mean Platelet Volume 10.2 fL (7.4-10.4); Platelet Count 196 K/uL (130-400); RDW Coefficient of Variation 13.9 % (11.5-14.5); RDW Standard Deviation 47.9 fL (36.4-46.3); Red Blood Count 4.23 M/uL (4.7-6.1); White Blood Count 5.55 K/uL (4.8-10.8)
[2018-08-28 06:54] LABS: BUN Creatinine Ratio 20.1 (10-20); Calcium 8.7 mg/dl (8.5-10.1); Est GFR (African American) 73.7; Est GFR (Non-African American) 63.6; Potassium 3.5 mmol/L (3.5-5.1)
[2018-08-28] MEDS: INSULIN ASPART 100 UNITS/ML 3 ML PEN SC SCH ×3 (07:55→21:17)
[2018-08-28] MEDS: INSULIN GLARGINE SOLOSTAR 100 UNITS/ML 3 ML PEN SC SCH (07:56)
[2018-08-28] MEDS ORDERED: NiCARDipine HCL INJ 2.5 MG/ML 10 ML AMP ONE (08:25)
[2018-08-28] MEDS ORDERED: NITROGLYCERIN/D5W 100MCG/ML 20ML SYR ONE (08:26)
[2018-08-28] MEDS ORDERED: HEPARIN (PORCINE) 1000 UNIT/ML 10 ML (CATH LAB USE ONLY) ONE (08:26)
[2018-08-28] MEDS ORDERED: MIDAZOLAM HCL 1 MG/ML 2ML VIAL ONE (08:27)
[2018-08-28] MEDS ORDERED: fentaNYL citrate 100 MCG/2 ML VIAL ONE (08:27)
--- NOTE | 2018-08-28 08:31 | Cardiology Progress Note ---
Date of Service August 28, 2018 Assessment & Plan (1) Combined systolic and diastolic heart failure, acute: (2) Idiopathic cardiomyopathy: Hold IV Lasix today. Continue spironolactone dose of 2.5 mg twice daily and potassium supplementation. Continue metoprolol succinate 25 mg by mouth daily. Continue atorvastatin, fenofibrate, omega-3 fish oil. Risks, benefits, alternatives to cardiac catheterization were discussed with patient at length. He is agreeable to procedure potential intervention if indicated. He is a drug-eluting stent candidate. Subjective Patient seen and examined the bedside. Lower extremity edema improved. Notes cough when lying supine. Dyspnea on exertion improved. Denies chest discomfort, palpitations, lightheaded, dizziness, syncope, near syncope. Describes bronchitis on a yearly basis during winter months dating back several years. Admits to excessive alcohol intake over the late fall and early winter associated with recent divorce. Offers no other concerns/complaints at this time. Review of Systems All systems reviewed & are unremarkable except as noted in HPI & below Physical Exam Vital Signs (Past 24 Hours): Last Vital Signs Temp 36.5 C 08/28/18 07:44 Pulse 97 H 08/28/18 07:44 Resp 20 08/28/18 07:44 BP 118/74 08/28/18 07:44 Pulse Ox 95 08/28/18 07:44 Physical Exam: General: NAD, AAO x3, well nourished. HEENT: Normocephalic. Atraumatic. Conjunctiva pink, no scleral icterus. Neck: No carotid bruits, the carotid upstrokes are brisk. No JVD. No HJR Heart: Regular normal S-1 and S-2 no S-3 or S-4 gallop. No murmurs or rub appreciated. PMI is not displaced. No RV heave. Lungs: Clear bilateral without rales , rhonchi, or wheeze. Abdomen: Normal bowel sounds. Soft. Nontender. No masses or organomegaly. No abdominal bruits. Extremities: Trace to mild bilateral ankle and pretibial edema. No clubbing, cyanosis. Pulses: radial=2/4, Dorsalis pedis =2/4, posterior tibial=2/4. Neuro: Cranial nerves grossly intact. No focal motor deficit.
--- NOTE | 2018-08-28 08:37 | Pre Anesthesia Assessment ---
Date of Service August 28, 2018 Pre Sedation Assessment Vital Signs Temp Pulse Pulse Pulse Resp BP BP 08/28/18 07:44 36.5 C 97 H 20 118/74 08/28/18 03:13 37.0 C 74 18 94/77 L 08/28/18 00:51 90 08/28/18 00:00 08/27/18 23:24 36.8 C 92 H 17 92/64 L 08/27/18 16:00 90 08/27/18 15:41 36.8 C 92 H 18 99/72 L 08/27/18 12:00 36.9 C 97 H 20 103/67 Pulse Ox Pulse Ox 08/28/18 07:44 95 08/28/18 03:13 94 08/28/18 00:51 08/28/18 00:00 96 08/27/18 23:24 93 08/27/18 16:00 08/27/18 15:41 93 08/27/18 12:00 97 Cardiovascular + regular rate and + regular rhythm no murmur Respiratory normal respiratory effort, lungs clear to auscultation Pre-Sedation Airway Assessment Smoking Status: Never smoker Procedure Planning Contraindications for Sedation: none Current Medications Reviewed: Yes Notes The planned sedation has been discussed with the patient. Informed Consent was obtained. I have identified the patient, determined the appropriateness of sedation and have assessed the patient immediately prior to the procedure. All medicine(s) and interventions are by my order.
--- NOTE | 2018-08-28 09:21 | Post Anesthesia Assessment ---
Date of Service August 28, 2018 Post Sedation Assessment Vital Signs Temp Pulse Pulse Pulse Resp BP BP 08/28/18 07:44 36.5 C 97 H 20 118/74 08/28/18 03:13 37.0 C 74 18 94/77 L 08/28/18 00:51 90 08/28/18 00:00 08/27/18 23:24 36.8 C 92 H 17 92/64 L 08/27/18 16:00 90 08/27/18 15:41 36.8 C 92 H 18 99/72 L 08/27/18 12:00 36.9 C 97 H 20 103/67 Pulse Ox Pulse Ox 08/28/18 07:44 95 08/28/18 03:13 94 08/28/18 00:51 08/28/18 00:00 96 08/27/18 23:24 93 08/27/18 16:00 08/27/18 15:41 93 08/27/18 12:00 97 Post Sedation Plan On clinical assessment, the patient appears to have tolerated the sedation without complications. Patient is recovering as anticipated. Patient will continue to be monitored by nursing and may be discharged when sedation discharge criteria are met per below protocol. Upon Completions of procedure and additional 15 minutes continue every 5 minute vital signs and the P.A.R. score; then discharge to a Phase I or Fast Track to Phase II per the following guidelines: * Discharge Patient to appropriate Phase II area if PAR is 8 or greater or return to pre- procedure baseline. The post - procedure orders will be as directed. * If PAR score is less than 8 or not return to pre-procedure baseline then patient will follow Phase I monitoring till PAR is reached for Phase II. The Phase I may be done in procedure room or may call to secure a Phase I area. * If naloxone or flumazenil are used for reversal, hold in Phase I for continued monitoring from when last reversal dose was given for a minimum of 60 minutes or longer pending the nurse and/or physician discretion of patient condition before discharge to Phase II. Please call the Sedation Physician to re-evaluate and complete post-note for discharge to Phase II area. Do NOT discharge from procedure sedation or Phase 1 until post- sedation evaluation note is complete by procedure /sedation MD Sedation Discharge Instructions to be given to the patient at discharge to home.
--- NOTE | 2018-08-28 09:33 | Cardiac Catheterization ---
Cardiac Cath Procedure Full Procedure Date August 28, 2018 Pre-Procedure Diagnosis Pre-Procedure Diagnosis: CHF and Cardiomyopathy AUC Score AUC Score: 8 Post-Procedure Diagnosis Post-Procedure Diagnosis: Mild CAD and Elevated Intracardiac Pressures Procedure(s) Performed Procedure(s) Performed: Coronary Angiography and Left Heart Cath Local City Driver Inocencio Enamorado DO Photographic Engineer(s) Li GÓMEZ Estimated Blood Loss Estimated Blood Loss: 8cc Medication(s) Medication(s): Fentanyl, Lidocaine 1%, Nicardipine, Nitroglycerin and Versed Summary of Findings Mild CAD with 30% ostial left main taper Hemodynamics Rest Ao:: 80/54/66 Final Ao: 86/62/72 LV: 87// Recommendations Recommendations: Medical Therapy and/or Counseling Specimens Specimens: None Radiation Exposure (mGy) 1429 Contrast (mls) 50 Fluids (cc crystalloids) Fluids (cc crystalloids): 188 Anesthesia Moderate sedation. Start 0846. End 0912. Sedation monitor: Ramona GÓMEZ Procedural Complication(s) None Disposition PCU ACC Data: Service Desk Manager Cardiac Status Clinical evaluation leading to the procedure CAD Presenation: Stable angina Anginal Classification: CCS III Heart Failure: NYHA Class: CCS III Imaging Studies Past 6 Months: Yes Stress Studies Past 6 Months: Yes Stress Testing w/SPECT MPI: Yes - Indeterminant Coronary Anatomy Dominant: Right Left Main (% Stenosis): Ostial (30% taper), Mid (10%) and Distal (10-20%) LAD (% Stenosis): Proximal (20%), Mid (30%) and Distal (10 -20% diffuse) D1 (% Stenosis): Ostial (20%) D2 (% Stenosis): Normal Circumflex (% Stenosis): Ostial (20%) OM1 (% Stenosis): Normal RCA (% Stenosis): Proximal (10-20% diffuse), Mid (10-20% diffuse) and Distal (30%) R PDA (% Stenosis): Mid (10% diffuse) R PL1 (% Stenosis): Normal AM (% Stenosis): Normal Ramus (% Stenosis): Mid (30%) Diagnostic Physicians Name: Inocencio Enamorado DO Closure Device Recommendations: Medical Therapy and/or Counseling
[2018-08-28] MEDS: METHYLCELLULOSE POWDER 454 GM JAR PO SCH ×2 (09:57→20:04)
[2018-08-28] MEDS: FENOFIBRATE NANOCRYSTALLIZED 145 MG TABLET PO SCH (09:59)
[2018-08-28] MEDS: POTASSIUM CHLORIDE 10 MEQ TABCR PO SCH (09:59)
[2018-08-28] MEDS: METOPROLOL SUCC 25MG EXT REL TAB PO SCH (09:59)
[2018-08-28] MEDS: ATORVASTATIN 40 MG TAB PO SCH (09:59)
[2018-08-28] MEDS: MULTIVITAMIN TAB PO SCH (09:59)
[2018-08-28] MEDS: OMEGA-3 (PURIFIED FISH OIL) 1 GM CAP PO SCH (09:59)
[2018-08-28] MEDS: SPIRONOLACTONE 25 MG TAB PO SCH ×2 (09:59→20:04)
[2018-08-28] MEDS: CBD PO SCH (10:00)
[2018-08-28] MEDS: HEMP PO SCH (10:00)
[2018-08-28] MEDS: ASPIRIN 81 MG ECTAB PO SCH (10:00)
[2018-08-28] MEDS ORDERED: PERFLUTREN LIPID MICROSPHERE (DEFINITY) IV ONE (14:03)
--- NOTE | 2018-08-28 17:06 | Hospitalist Progress Note ---
Date of Service August 28, 2018 Assessment & Plan (1) Combined systolic and diastolic heart failure, acute: Presented with shortness of breath, dyspnea on exertion, lower extremity edema, weight gain Acute Systolic and diastolic CHF Exacerbation Idiopathic Cardiomyopathy Family H/O nonischemic Cardiomyopathy CRX: No acute cardiopulmonary findings. Moderate cardiomegaly. Last ECHO:Performed on 07/23/2018: severe LV dilatation with severe global LV hypokinesis, severe LV systolic dysfunction, EF 24%. Grade III diastolic dysfunction, Mild MR, TR, Pulm. HTN. Recent Stress Test: Ischemic heart disease with large Scar And adequate diuresis with IV Lasix 40mg BID Lower extremity edema improved markedly, no shortness of breath or dyspnea on exertion Should input from cardiology Status post cardiac cath today: Shows minimal nonocclusive coronary artery disease, recommend medical management Continue Aldactone Hold Lisinopril, Plan to start on Entresto Continue Metoprolol Daily weight, I/Os, fluid restriction, Low sodium diet Monitor renal function/electrolytes (2) Idiopathic cardiomyopathy: Management as above (3) Elevated troponin: Mild Troponin elevation in setting of acute CHF EKG changes: No acute signs of Ischemia Cardiac cath shows nonocclusive coronary artery disease (4) Type 2 diabetes mellitus: A1c of 7.8 in Jun 2018 Continue Basal and ISS Insulin Monitor BGs (5) Hypertension: Stable Continue current meds (6) Hx of supraventricular tachycardia: Continue Metoprolol Monitor (7) Hyperlipidemia: Continue statin (8) GERD (gastroesophageal reflux disease): Continue PPI (9) MDD (major depressive disorder): Continue CBD/Hemp supplement DVT Px: SQ Lovenox Code status: Full Code Disposition: Stable discharge home tomorrow after cardiology evaluation Subjective Underwent cardiac cath today, Right wrist catheter access site remains intact, no pain or swelling No complaint of shortness of breath, no dyspnea on exertion, no orthopnea Has nonproductive cough, afebrile Feels fine, Physical Exam Vital Signs (Past 24 Hours): Last Vital Signs Temp 36.6 C 08/28/18 16:00 Pulse 94 H 08/28/18 16:00 Resp 18 08/28/18 16:00 BP 106/83 08/28/18 16:00 Pulse Ox 94 08/28/18 16:00 Physical Exam: GENERAL: No sign of distress, HEENT: Sclera nonicteric, pink-purple bilateral equal reactive to light extraocular muscle intact Normal oral mucosa, neck: No JVD, no thyromegaly, trachea midline Lungs: Clear to auscultate, no wheeze or rales Cardiovascular: Regular S1 and S2, no murmur or gallop, no JVD, no lower extremity edema Abdomen: Soft, nontender, bowel sounds active, no hepatosplenomegaly Extremities: No rash or deformity, normal joint, Neuro: No focal neurological deficit, no dysarthria, no facial droop Psych: Alert awake oriented x3: Euthymic Skin: No rash LYMPH NODES: No cervical lymphadenopathy
[2018-08-28] MEDS: TRAZODONE HCL 100 MG TAB PO SCH (20:04)
[2018-08-28] MEDS: PANTOprazole 40 MG TAB PO SCH (20:04)
[2018-08-29] MEDS ORDERED: GUAIFENESIN/CODEINE 100MG/10MG 5ML UDC PO PRN (00:35)
[2018-08-29] MEDS ORDERED: GUAIFENESIN/CODEINE 100MG/10MG 5ML UDC ONE (00:42)
[2018-08-29] MEDS: INSULIN ASPART 100 UNITS/ML 3 ML PEN SC SCH ×3 (04:39→12:12)
[2018-08-29] MEDS: INSULIN GLARGINE SOLOSTAR 100 UNITS/ML 3 ML PEN SC SCH ×2 (04:39→08:01)
[2018-08-29 05:48] LABS: Hematocrit (blood only) 39.2 % (42-52); Hemoglobin 12.6 g/dL (14.0-18.0); Mean Corpuscular Hgb Conc 32.1 g/dL (32-36); Mean Corpuscular Volume 94.2 fL (80-100); Mean Platelet Volume 10.3 fL (7.4-10.4); Platelet Count 195 K/uL (130-400); RDW Coefficient of Variation 13.8 % (11.5-14.5); RDW Standard Deviation 47.6 fL (36.4-46.3); Red Blood Count 4.16 M/uL (4.7-6.1); White Blood Count 5.11 K/uL (4.8-10.8)
[2018-08-29 06:10] LABS: BUN Creatinine Ratio 23.3 (10-20); Calcium 8.6 mg/dl (8.5-10.1); Creatinine Clr Calc Pharmacy 82.5 ml/min; Est GFR (African American) 88.4; Est GFR (Non-African American) 76.2; Potassium 3.9 mmol/L (3.5-5.1)
[2018-08-29] MEDS: ASPIRIN 81 MG ECTAB PO SCH (08:05)
[2018-08-29] MEDS: ATORVASTATIN 40 MG TAB PO SCH (08:05)
[2018-08-29] MEDS: FENOFIBRATE NANOCRYSTALLIZED 145 MG TABLET PO SCH (08:05)
[2018-08-29] MEDS: OMEGA-3 (PURIFIED FISH OIL) 1 GM CAP PO SCH (08:05)
[2018-08-29] MEDS: MULTIVITAMIN TAB PO SCH (08:05)
[2018-08-29] MEDS: METOPROLOL SUCC 25MG EXT REL TAB PO SCH (08:05)
[2018-08-29] MEDS: HEMP PO SCH (08:06)
[2018-08-29] MEDS: SPIRONOLACTONE 25 MG TAB PO SCH (08:06)
[2018-08-29] MEDS: CBD PO SCH (08:06)
[2018-08-29] MEDS: METHYLCELLULOSE POWDER 454 GM JAR PO SCH (08:06)
[2018-08-29] MEDS ORDERED: FUROSEMIDE 60 MG in SYRINGE 0 ML IV ONE (08:45)
[2018-08-29] MEDS ORDERED: SACUBITRIL-VALSARTAN 24-26 MG TAB PO SCH (09:00)
--- NOTE | 2018-08-29 10:52 | Cardiology Progress Note ---
Date of Service August 29, 2018 Assessment & Plan (1) Combined systolic and diastolic heart failure, acute: (2) Idiopathic cardiomyopathy: With cardiac catheterization data now available, it has been determined the patient has a nonischemic cardiomyopathy, with severe left ventricular systolic dysfunction, repeat echocardiogram performed yesterday 08/28/18 revealed severe global left ventricular hypokinesis with ejection fraction in the range of 20-25% unchanged compared to initial presentation in June,. On his previous echo, severe, grade 3, left ventricular diastolic function was noted. Based on the elevated left ventricular end-diastolic pressure yesterday as measured with left heart catheterization of 27 mmHg, significant diastolic dysfunction is present. Plan: Furosemide 60 mg IV x1 this morning 08/29/18. Start Entresto 24/26 mg 1 tablet twice daily. Plan for discharge later today if he tolerates am medications. I have requested cardio follow up with Dr Olguin or Cee Brown within 1 week, with BMP to be performed day of follow up. Discontinued medications: Lisinopril 20 mg (transitioned to Entresto) Spironolactone 12.5 mg twice daily Potassium chloride 10 mEq twice daily Furosemide 40 mg twice daily New medications: Entresto 24/26 mg, 1 tablet by mouth 2 times per day. -Our office has already completed the necessary prior authorization, and a prescription has been sent to the patient's outpatient pharmacy, [facility] for the Entresto. Torsemide 20 mg p.o. twice daily. first thing in a.m., and again at 2 PM Spironolactone 25 mg by mouth 1 time per day in the morning Potassium chloride 20 mEq by mouth 1 times per day in the morning Continue the following previous prior to hospital cardiac medications: Aspirin 81 mg by mouth daily Atorvastatin 40 mg by mouth daily Fenofibrate 145 mg daily Metoprolol succinate 25 mg daily in the morning Sudden cardiac risk assessment: The patient has occasional isolated PVCs noted on the toilet products molder without evidence of sustained ventricular arrhythmias or complex ventricular arrhythmias. He has had no syncope. Severe left ventricular systolic dysfunction is once again been documented. I discussed the options of proceeding with wearing a LifeVest wearable defibrillator for prophylaxis against arrhythmia genic sudden cardiac in the setting of nonischemic cardiomyopathy and severe LV systolic dysfunction. Ke balderas declines LifeVest at present. We discussed that if his ejection fraction remains less than 35% after 3-6 months of medication therapy, an implantable AICD would be indicated, and he states he would be interested in discussing this with electrophysiology if it is determined to be necessary at that time. 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 He has already been provided short-term disability, and I think we need to extend his disability for at least 12 weeks. This can be readdressed with paperwork to be completed in the office. (3) CAD (coronary artery disease): Patient has mild nonobstructive CAD as outlined his cardiac catheterization report. His cardiomyopathy however is out of proportion to the mild CAD. Recommend ongoing risk factor modification and treatment with aspirin and atorvastatin (4) Hyperlipidemia: Continue atorvastatin Subjective Chief complaint: Follow-up shortness of breath, volume overload Subjective: Patient feeling well status post cardiac catheterization yesterday. Cardiac catheterization revealed nonobstructive CAD, and therefore his cardiomyopathy is felt to be due to a nonischemic cardiomyopathy. The left ventricular end-diastolic pressure was elevated at 27 mmHg. 50 mL of contrast were administered. Telemetry reveals stable sinus rhythm in the 90-99 bpm range with occasional isolated PVCs, no sustained ventricular arrhythmias. Review of Systems All systems reviewed & are unremarkable except as noted in HPI & below Physical Exam Vital Signs (Past 24 Hours): Last Vital Signs Temp 36.6 C 08/29/18 07:31 Pulse 81 08/29/18 08:00 Resp 18 08/29/18 07:31 BP 105/70 08/29/18 07:31 Pulse Ox 98 08/29/18 07:31 Constitutional: WD/WN, vitals as above Respiratory: normal respiratory effort, lungs clear to auscultation Cardiovascular: RRR, no murmur, no edema Extremities: no edema Right radial access clean dry and intact with no ecchymosis or hematoma. Gastrointestinal (Abdomen): Inspection/Auscultation: no abdominal edema Previous mild abdominal distention has resolved during diuretic therapy this admission Skin: no rashes, warm and dry Neurologic: moves all extremities and awake; no focal motor deficits Results & Data Laboratory Results CBC 08/29/18 Range/Units 05:21 WBC 5.11 (4.8-10.8) K/uL RBC 4.16 L (4.7-6.1) M/uL Hgb 12.6 L (14.0-18.0) g/dL Hct 39.2 L (42-52) % Plt Count 195 (130-400) K/uL Comprehensive Metabolic Panel 08/29/18 Range/Units 05:21 Sodium 143 (136-145) mmol/L Potassium 3.9 (3.5-5.1) mmol/L Chloride 109 H (98-107) mmol/L Carbon Dioxide 29 (21-32) mmol/L BUN 25 H (7-18) mg/dl Creatinine 1.05 (0.6-1.4) mg/dl Glucose 116 H (70-99) mg/dl Calcium 8.6 (8.5-10.1) mg/dl Intake and Output 08/28/18 08/29/18 08/29/18 22:59 06:59 14:59 Intake Total 285 / 560 Output Total 325 / 901 400 / 901 Balance -40 / -341 -400 / -341 Intake: Oral 285 / 560 Output: Urine 325 / 900 400 / 900 Other: Other Intake Source [employer] Weight 99.1 kg Medications Administered Current Inpatient Medications Acetaminophen (Tylenol) 650 mg PO Q4H PRN PRN Reason: Pain or Fever Stop: 09/25/18 16:35 Aspirin (Ecotrin Ectab) 81 mg PO DAILY LOLLY Stop: 09/26/18 08:59 Last Admin: 08/29/18 08:05 Dose: 81 mg Documented by: Atorvastatin Calcium (Lipitor) 40 mg PO DAILY LOLLY Stop: 09/26/18 08:59 Last Admin: 08/29/18 08:05 Dose: 40 mg Documented by: Dextrose (Dextrose 50%) 25 - 50 ml IV UD PRN; Protocol PRN Reason: Hypoglycemia Protocol Stop: 09/25/18 17:08 Fenofibrate (Tricor) 145 mg PO DAILY LOLLY Stop: 09/26/18 08:59 Last Admin: 08/29/18 08:05 Dose: 145 mg Documented by: Fish Oil (Huron-3 (Purified Fish Oil)) 2 gm PO DAILY [facility] Stop: 09/26/18 08:59 Last Admin: 08/29/18 08:05 Dose: 2 gm Documented by: Glucagon (Glucagen) 1 mg SQ UD PRN; Protocol PRN Reason: Hypoglycemia Protocol Stop: 09/25/18 17:08 Glucose (Dex4 Glucose) 4 - 8 tabs PO UD PRN; Protocol PRN Reason: Hypoglycemia Protocol Stop: 09/25/18 17:08 Glucose (Glucose 40%) 15 - 30 gm PO UD PRN; Protocol PRN Reason: Hypoglycemia Protocol Stop: 09/25/18 17:08 Guaifenesin/Codeine Phosphate (Robitussin-Ac Sugar Free) 5 ml PO Q6H PRN PRN Reason: Cough Stop: 09/28/18 00:34 Insulin Aspart (Novolog Flexpen) 0 units SC ACHS LOLLY Stop: 09/25/18 20:59 Last Admin: 08/29/18 08:02 Dose: 5 units Documented by: Insulin Glargine (Lantus Solostar Pen) 0 - 20 units SC BID [facility] Stop: 09/25/18 20:59 Last Admin: 08/29/18 08:01 Dose: 15 units Documented by: Methylcellulose (Citrucel) 15 gm PO BID [facility] Stop: 09/25/18 20:59 Last Admin: 08/29/18 08:06 Dose: 15 gm Documented by: Metoprolol Succinate (Toprol Xl) 25 mg PO DAILY [facility] Stop: 09/26/18 08:59 Last Admin: 08/29/18 08:05 Dose: 25 mg Documented by: Miscellaneous (Carbohydrates For Hypoglycemia) 15 - 30 gm PO UD PRN PRN Reason: Hypoglycemia Treatment Stop: 09/25/18 17:08 Multivitamins (Multivitamin Tab) 1 tab PO DAILY [facility] Stop: 09/26/18 08:59 Last Admin: 08/29/18 08:05 Dose: 1 tab Documented by: Cbd 30mg / Hemp 170mg Cap: Non- Formulary Patient's Own Med 1 ea PO DAILY [facility]; Protocol Stop: 09/26/18 08:59 Last Admin: 08/29/18 08:06 Dose: 1 tab Documented by: Ondansetron HCl (Zofran) 4 mg IV Q6H PRN PRN Reason: Nausea Stop: 09/25/18 16:35 Pantoprazole Sodium (Protonix) 40 mg PO HS [facility] Stop: 09/25/18 20:59 Last Admin: 08/28/18 20:04 Dose: 40 mg Documented by: Polyethylene Glycol (Miralax Powder Packet) 17 gm PO DAILY PRN PRN Reason: Constipation Stop: 09/25/18 16:35 Potassium Chloride (Klor-Con M10) 10 meq PO BID17 LOLLY Stop: 09/25/18 16:59 Last Admin: 08/28/18 09:59 Dose: 10 meq Documented by: Sacubitril/Valsartan (Entresto 24/26mg) 1 tab PO BID LO[facility] Stop: 09/28/18 08:59 Last Admin: 08/29/18 09:22 Dose: 1 tab Documented by: Spironolactone (Aldactone) 12.5 mg PO BID LO[facility] Stop: 09/25/18 20:59 Last Admin: 08/29/18 08:06 Dose: 12.5 mg Documented by: Trazodone HCl (Desyrel) 100 mg PO HS LO[facility] Stop: 09/25/18 20:59 Last Admin: 08/28/18 20:04 Dose: 100 mg Documented by:
[2018-08-29] MEDS ORDERED: POTASSIUM CHLORIDE 20 MEQ TABCR PO ONE (11:00)
[2018-08-29] MEDS ORDERED: TORSEMIDE 20 MG TAB PO SCH (14:00)
--- NOTE | 2018-08-29 18:22 | Discharge Summary ---
Date of Service August 29, 2018 Admission HPI Per Admitting Provider This is a 63yo M with a PMH of mixed systolic and diastolic HF, DM II, HTN, HLD, GERD and MDD who presents with dyspnea at rest and BLE edema x 4 days. Patient was diagnosed with decompensated heart failure in June 2018 and is a patient of Dr. Olguin. TTE from this time demonstrates severely reduced left ventricular systolic function with severe global hypokinesis and EF of 24%. Also with grade 3 diastolic dysfunction and pulmonary hypertension. Underwent nuclear stress testing for further definition of cardiomyopathy and stress test demonstrated large fixed perfusion defect without ischemia. He had no anginal symptoms at follow-up appointment. Was seen in clinic by YAMILA Brown last Sunday and was found to be in acute decompensated heart failure, with dyspnea on exertion and a 10 pound weight gain. Lasix dose was increased to 40 mg p.o. twice daily as well as spironolactone increased to 12.5 mg twice daily over the weekend. Dyspnea on exertion has worsened over the weekend and patient has developed nonproductive cough, orthopnea, PND and worsening bilateral lower extremity swelling up to hips. Was sent in from clinic today by YAMILA Brown for further management with IV Lasix. Patient has a strong family history of heart failure and possible nonischemic cardiomyopathy. Was referred to genetic counselor for testing, but as of 08/23/18 no significant genetic changes were identified that have a known association to increased risk for hereditary cardiomyopathy. Patient is visibly short of breath, with HR of 103. Oxygen saturation is 96% on room air. Has been eating reduced sodium diet but not limiting fluids. H/o heavy etoh use but reportedly quit in Jun 2018. No fever, chills, lightheadedness, headache, near- syncope, chest pain, palpitations, wheezing, nausea, vomiting, abdominal pain, diarrhea or constipation. Principal Diagnosis Acute CHF with biventricular failure Discharge Exam Constitutional WD/WN, vitals as above no acute distress ENMT Mallampati Class: III Respiratory normal respiratory effort, lungs clear to auscultation no cough Auscultation: + diminished lung sounds (Decreased breath sounds bilaterally at the bases); no crackles and no rales Cardiovascular RRR, no murmur, no edema Rate/Rhythm: regular rate and regular rhythm Heart Sounds: no murmur Extremities: no edema Gastrointestinal (Abdomen) normal bowel sounds, soft, nontender, no hepatosplenomegaly Inspection/Auscultation: no abdominal edema Skin no rashes, warm and dry Neurologic moves all extremities and awake; no focal motor deficits Discharge Data Allergies Allergy/AdvReac Type Severity Reaction Status Date / Time No Known Allergies Allergy Verified 08/26/18 14:09 Consultations 08/26/18 14:26 ED Decision to Admit Stat 08/26/18 16:36 Consult Cardiology Routine 08/28/18 08:00 Consult Cardiac Catheterization Routine Procedures Performed Operation Date: 08/28/18 08:00 Actual Procedures p Cineradiography w/Routine Exam - Inocencio Enamorado, DO p Cath, Left with Cors and Vent - Inocencio Eanmorado DO Ordered Studies 08/28/18 06:45 CL Cath Imgs for PACS use only Routine Hospital Course (1) Combined systolic and diastolic heart failure, acute: Resolved, will compensated with normal volume status Presented with shortness of breath, dyspnea on exertion, lower extremity edema, weight gain Acute Systolic and diastolic CHF Exacerbation Idiopathic Cardiomyopathy Family H/O nonischemic Cardiomyopathy CRX: No acute cardiopulmonary findings. Moderate cardiomegaly. Last ECHO:Performed on 07/23/2018: severe LV dilatation with severe global LV hypokinesis, severe LV systolic dysfunction, EF 24%. Grade III diastolic dysfunction, Mild MR, TR, Pulm. HTN. Recent Stress Test: Ischemic heart disease with large Scar Patient hadadequate diuresis with IV Lasix 40mg BID Lower extremity edema improved markedly, no shortness of breath or dyspnea on exertion Should input from cardiology cardiac cath Shows minimal nonocclusive coronary artery disease, recommend medical management Continue Aldactone Lisinopril Discontinued ,Will be started on Entresto Continue Metoprolol Daily weight, I/Os, fluid restriction, Low sodium diet Patient given congestive heart failure Discharge instruction (2) Idiopathic cardiomyopathy: Management as above (3) Elevated troponin: Mild Troponin elevation in setting of acute CHF EKG changes: No acute signs of Ischemia Cardiac cath shows nonocclusive coronary artery disease (4) Type 2 diabetes mellitus: A1c of 7.8 in Jun 2018 (5) Hypertension: Stable Continue current meds (6) Hx of supraventricular tachycardia: Continue Metoprolol (7) Hyperlipidemia: Continue statin (8) GERD (gastroesophageal reflux disease): Continue PPI (9) MDD (major depressive disorder): Continue CBD/Hemp supplement DVT Px: SQ Lovenox Code status: Full Code Disposition: Stable to be discharged home today Total Time Total Time Spent Total Time Spent (In Minutes): Approximate 35 minutes Total Time Includes: Examination of the Patient, Discharge Planning, Medication Reconciliation and Communication With Other Providers Discharge Plan Discharge Items Patient Disposition: Home - Self-Care Reason For Visit: DECOMPENSATED CHF Discharge Diagnosis: ACUTE CHF WITH BIVENTRICULAR FAILIRE Discharge Goals: Decrease discomfort Activity: Resume your previous activity Non-emergency contact: Primary Care Provider Call non-emergency contact if: you have any medication questions Follow-up/Referrals: Annika Alfaro DO [Primary Care Provider] - 09/03/18 11:20 am Lucretia Brown PA-C [Physician Urban Design Consultant] - 09/05/18 3:00 pm Diet: Heart Healthy Fluids: 1500ml (6 cups) Addtl Provider Instructions: Call your Primary Care doctor if any of the following symptoms or problems start or get worse: * Shortness of breath or difficulty breathing * Wake up at night short of breath * Chest pain * Cough * Swelling of your hands, feet, or legs * More fatigued or tired with your normal activity * Palpitations - sudden fast heart beats WEIGHT * Weigh yourself every morning after using the bathroom. * Use the same scale. * Wear the same amount of clothing. * Write your weight down on a chart. * Call your Primary Care doctor if you gain more than 2-3 pounds in 1-2 days. MEDICATIONS * Use this discharge instruction sheet for medication instructions. * Take your medications at the time your doctor ordered. * Do not skip a dose of your medicines. * If you miss a dose of medicine, take it as soon as possible, but DO NOT DOUBLE A DOSE. * Read your medicine information when you get home. * Know all of the side effects of your medicine. If in doubt, ask your pharmacist * Call your Primary Care doctor's office if you have any side effects. * Be sure all of your doctors know what medicine and herbs you take (including cold, flu, and herbal medicine). Take the following with you to your follow-up doctor appointments: * Weight Chart * Medication List * List of questions Do not drink excessive alcohol, beer or wine. Prescriptions: New torsemide 20 mg Tablet 20 mg PO BID 30 Days Qty: 60 RF: 0 spironolactone 25 mg Tablet 25 mg PO QAM 30 Days Qty: 30 RF: 0 potassium chloride [Klor-Con M20] 20 mEq Tablet,Er Particles/Crystals 20 meq PO QAM 30 Days Qty: 30 RF: 0 Entresto 24-26 mg Tablet 1 tab PO BID 30 Days Qty: 60 RF: 0 Continued atorvastatin 40 mg tablet 40 mg PO DAILY RF: 0 trazodone 100 mg tablet 100 mg PO HS RF: 0 metoprolol succinate 25 mg tablet extended release 24 hr 25 mg PO DAILY RF: 0 metformin 500 mg tablet extended release 24 hr 500 mg PO BID RF: 0 fenofibrate nanocrystallized 145 mg tablet 145 mg PO DAILY RF: 0 [id number]-[id number] [krill oil] 468-15-63-50 mg Capsule 2 cap PO DAILY RF: 0 Cbd Oil 30 mg PO DAILY RF: 0 Hemp 170 mg PO DAILY RF: 0 multivitamin Tablet 1 tab PO DAILY RF: 0 aspirin [Aspir-81] 81 mg Tablet,Delayed Release (Dr/Ec) 81 mg PO DAILY RF: 0 Fiber Laxative (methylcellulo) 500 mg Tablet 500 mg PO BID RF: 0 omeprazole 20 mg Capsule,Delayed Release(Dr/Ec) 20 mg PO HS RF: 0 Lantus Solostar U-100 Insulin 100 unit/mL (3 mL) Insulin Pen 50 unit SUBCUT DAILY RF: 0 Discontinued furosemide 40 mg tablet 40 mg PO BID RF: 0 lisinopril 20 mg tablet 20 mg PO DAILY RF: 0 spironolactone 25 mg tablet 12.5 mg PO BID RF: 0 Stand-Alone Forms: [facility]/Other Patient Handouts: Cath Cardiac Dc Discharge Orders: Discharge Order (Routine); Ordered 08/29/18 Ordered By: Virginia Galicia Admission Data Admit Date/Time: 08/27/18 08:26 Attending Provider: Virginia Galicia Admit Provider: Fco Flores Primary Care Provider: Annika Alfaro Other Providers: Polo Whitehead ; Fco Flores ; Inocencio Enamorado Service: Telemetry Other Interventions: Discharge Summary Assessment (RN) Last Done: 08/29/18 13:05 DC Date/Time DO NOT enter until pt leaves facility: 08/29/18 13:53
[2018-08-30] MEDS ORDERED: SPIRONOLACTONE 25 MG TAB PO SCH (09:00)
[2018-08-30] MEDS ORDERED: POTASSIUM CHLORIDE 20 MEQ TABCR PO SCH (09:00)
== END 2018-08-29 13:53 | disposition home or self-care (01) | DRG 286 ==
LOC: ED 11:58 → 2E 11:58 → SUATTDRO 08-27 08:26

== ENCOUNTER 2018-09-05 15:13 | Inpatient (IN) ==
[2018-09-05] MEDS ORDERED: SODIUM CHLORIDE 0.9% 1000ML 1,000 ML IV STA (15:25)
[2018-09-05 15:26] VITALS: TEMP 97.9
[2018-09-05] MEDS ORDERED: AMIODARONE IV BOLUS / DRIP IV STA (15:37)
[2018-09-05] MEDS ORDERED: AMIODARONE / D5W 150 MG/100 ML BAG IV STA (15:37)
[2018-09-05 15:40] LABS: Basophils # (auto) 0.02 K/uL (0-0.2); Basophils % (auto) 0.2 %; Eosinophils # (auto) 0.12 K/uL (0-0.5); Eosinophils % (auto) 1.3 %; Hematocrit (blood only) 44.6 % (42-52); Hemoglobin 14.9 g/dL (14.0-18.0); Immature Granulocytes # (auto) 0.02 K/uL (0.00-0.02); Immature Granulocytes % (auto) 0.2 %; Lymphocytes # (auto) 2.99 K/uL (1.2-3.4); Lymphocytes % (auto) 32.2 %; Mean Corpuscular Hgb Conc 33.4 g/dL (32-36); Mean Corpuscular Volume 91.6 fL (80-100); Mean Platelet Volume 10.4 fL (7.4-10.4); Monocytes # (auto) 0.47 K/uL (0.11-0.59); Monocytes % (auto) 5.1 %; Neutrophils # (auto) 5.68 K/uL (1.4-6.5); Platelet Count 222 K/uL (130-400); RDW Coefficient of Variation 13.6 % (11.5-14.5); RDW Standard Deviation 45.8 fL (36.4-46.3); Red Blood Count 4.87 M/uL (4.7-6.1)
[2018-09-05] MEDS ORDERED: AMIODARONE 360MG / 200ML D5W IV ONE (15:40)
[2018-09-05] MEDS ORDERED: AMIODARONE 150MG / 100ML D5W IV ONE ×2 (15:40→18:20)
--- NOTE | 2018-09-05 15:40 | XRay Report ---
XR chest 1V portable CLINICAL HISTORY: aflutter COMPARISON STUDY: 08/26/2018 FINDINGS: The heart is enlarged. There is mild central vascular prominence without evidence of overt failure. There is no lobar consolidation. There are no pleural effusions.[ IMPRESSION: Mild cardiomegaly. No evidence of focal pulmonary consolidation Electronically signed by: Fabian Woodward M.D. 09/05/2018 3:38 PM
[2018-09-05 15:43] LABS: iSTAT Creatinine 1.3 mg/dl (0.6-1.3); iSTAT Ionized Calcium 1.2 mmol/l (1.12-1.32); iSTAT Potassium 5.1 mEq/L (3.3-5.0)
[2018-09-05] MEDS ORDERED: AMIODARONE / D5W 360 MG/200 ML BAG IV SCH ×2 (15:45→21:40)
--- NOTE | 2018-09-05 15:51 | Cardiology Consultation ---
Date of Consultation September 05, 2018 Assessment & Plan (1) Atrial flutter with rapid ventricular response: Intravenous amiodarone and heparin initiated. No change in heart rate. Patient became unstable and hypotensive in the emergency department. Decision was made to proceed with urgent external direct-current cardioversion. Informed consent obtained. See separate report of procedure. Patient successfully converted to sinus rhythm. Addendum / reevaluation: Post cardioversion the patient reverted to a wide-complex rhythm at a rate of 110-120 bpm. Cardiogenic shock with systolic blood pressure ranging 80s-90s. Decision was made to insert intra-aortic balloon pump for circulatory support. Repeat external current cardioversion was planned, however, patient received a second 150 mg bolus of amiodarone and he subsequently converted to sinus rhythm. Patient transferred to the cardiac catheterization lab urgently for intra- aortic balloon pump and [place] catheter insertion. Triple-lumen central line was placed in the right-sided internal jugular vein by critical care medicine. Levo fed initiated in the cardiac catheterization lab for blood pressure support. Balloon pump placed without complication. Patient tolerated procedure well. He will be urgently transferred to [facility] for advanced heart failure therapies and possible mechanical hemodynamic support if necessary. A total of 110 minutes of critical care time was spent evaluating patient, for bleeding plan of care, reviewing data and studies, as well as discussing treatment with consulting physicians and medical staff. Critical care time utilized in addition to any other procedures. (2) Cardiogenic shock: Intra-aortic balloon pump inserted without complication. Vasopressor support initiated in the Iron Worker Apprentice. Mean arterial pressure currently greater than 65 mmHg. Volume status appears euvolemic to dry. Patient is awake and mentating. Pulmonary arterial catheter in place. Intravenous amiodarone infusion will be continued to maintain sinus rhythm. Patient will be transferred by air to [facility]. (3) Idiopathic cardiomyopathy: Recent cardiac catheterization demonstrates mild nonobstructive CAD with elevated intracardiac pressures. Continue evidence-based heart failure therapy including Aldactone, Entresto, and beta-sadie. Continue torsemide 20 mg twice daily. (4) Combined systolic and diastolic heart failure, acute: Mild weight gain noted. Will follow volume status closely. Consideration for IV Lasix in a.m. pending assessment. History of Present Illness Reason for Consultation: Atrial flutter with rapid ventricular response. Nonischemic cardiomyopathy Requesting Physician: Dr. Jak Anderson Attending Physician: Dr. Machado History of Present Illness 63-year-old patient recently admitted with acute decompensated heart failure. Patient underwent cardiac catheterization demonstrating non-obstructive CAD. He presented to the outpatient cardiology clinic today for routine follow-up. During the actual visit, patient developed generalized feeling of unwellness. Notes fatigue and lightheadedness. [place] his heart racing. No chest pain. Noted to be tachycardic. ECG demonstrated atrial flutter with 2-1 conduction. Initially hypotensive with a systolic blood pressure in the 80s. No syncope or near syncope. He was transferred to the emergency department. Upon arrival he is noted to be in atrial flutter with a heart rate of approximately 100-140 bpm. Blood pressure has improved her systolic blood pressure currently 110 mmHg. States previously reported lightheadedness has improved. Allergies Allergy/AdvReac Type Severity Reaction Status Date / Time No Known Allergies Allergy Verified 09/05/18 16:09 Home Medications Home Medications Medication Instructions Recorded Confirmed Type Cbd Oil 30 mg PO DAILY 08/26/18 09/05/18 History Fiber Laxative (methylcellulo) 500 mg PO BID 08/26/18 09/05/18 History Hemp 170 mg PO DAILY 08/26/18 09/05/18 History Lantus Solostar U-100 Insulin 50 unit SUBCUT DAILY 08/26/18 09/05/18 History aspirin [Aspir-81] 81 mg PO DAILY 08/26/18 09/05/18 History atorvastatin 40 mg PO DAILY 08/26/18 09/05/18 History fenofibrate nanocrystallized 145 mg PO DAILY 08/26/18 09/05/18 History rrruc-qheld-3-you-zst-lwankg 2 cap PO DAILY 08/26/18 09/05/18 History [krill oil] metformin 500 mg PO BID 08/26/18 09/05/18 History metoprolol succinate 25 mg PO DAILY 08/26/18 09/05/18 History multivitamin 1 tab PO DAILY 08/26/18 09/05/18 History omeprazole 20 mg PO HS 08/26/18 09/05/18 History trazodone 100 mg PO HS 08/26/18 09/05/18 History potassium chloride [Klor-Con M20] 20 meq PO QAM 30 Days #30 tab 08/29/18 09/05/18 Rx sacubitril-valsartan [Entresto] 1 tab PO BID 30 Days #60 tab 08/29/18 09/05/18 Rx spironolactone 25 mg PO QAM 30 Days #30 tab 08/29/18 09/05/18 Rx torsemide 20 mg PO BID 30 Days #60 tab 08/29/18 09/05/18 Rx Patient History Medical History CAD (coronary artery disease) (Chronic) Idiopathic cardiomyopathy (Chronic) Hx of supraventricular tachycardia (Chronic) MDD (major depressive disorder) (Chronic) GERD (gastroesophageal reflux disease) (Chronic) Hyperlipidemia (Chronic) Type 2 diabetes mellitus (Chronic) Hypertension (Chronic) Surgical History Fracture of fibula, proximal (Resolved) s/p repair Family History Other Heart disease Hypertension Social History Preferred Language: Faroese Beliefs That Will Affect Care: None marital status: Current Living Situation: Alone Current Living Situation Comment: live alone current occupational status: unemployed Feels Safe at Home: Yes Smoking Status: Never smoker Hx Alcohol Use: Yes Hx Substance Use: No Review of Systems Pertinent positives noted per HPI, conference of 10 system review otherwise negative. Physical Exam Vital Signs (Past 24 Hours): Last Vital Signs Temp 36.6 C 09/05/18 15:21 Pulse 136 H 09/05/18 15:21 Resp 18 09/05/18 15:21 BP 111/77 09/05/18 15:21 Pulse Ox 94 09/05/18 15:33 Physical Exam: General: Moderate distress, diaphoretic. Overweight. HEENT: Normocephalic. Atraumatic. Conjunctiva pink, no scleral icterus. Neck: No carotid bruits, the carotid upstrokes are brisk. No JVD. No HJR Heart: Regular, tachycardic normal S-1 and S-2. No murmurs or rub appreciated. PMI is not displaced. No RV heave. Lungs: Clear bilateral without rales , rhonchi, or wheeze. Abdomen: Normal bowel sounds. Soft. Nontender. No masses or organomegaly. No abdominal bruits. Extremities: No clubbing, cyanosis, or edema. Pulses: radial=2/4, Dorsalis pedis =2/4, posterior tibial=2/4. Neuro: Cranial nerves grossly intact. No focal motor deficit. Results & Data Laboratory Results Laboratory Results - last 24 hr 09/05/18 09/05/18 09/05/18 15:25 15:25 15:30 WBC 9.30 RBC 4.87 Hgb 14.9 POC Hgb 16.0 Hct 44.6 POC Hct 47 MCV 91.6 MCH 30.6 MCHC 33.4 RDW Std Deviation 45.8 RDW Coeff of Cori 13.6 Plt Count 222 MPV 10.4 Immature Gran % (Auto) 0.2 Neut % (Auto) 61.0 Lymph % (Auto) 32.2 [place] % (Auto) 5.1 Eos % (Auto) 1.3 Baso % (Auto) 0.2 Immature Gran # (Auto) 0.02 Neut # (Auto) 5.68 Lymph # (Auto) 2.99 [place] # (Auto) 0.47 Eos # (Auto) 0.12 Baso # (Auto) 0.02 PT 11.9 INR 1.2 H APTT 22.9 PTT Ratio 0.8 POC Sodium 133 L POC Potassium 5.1 H POC Chloride 99 L POC Total CO2 22 L POC Anion Gap 18.0 POC BUN 34 H POC Creatinine 1.3 POC Glucose (other) 207 H POC Ioniz Calcium Marissa 1.20 Medications Administered Cbd Oil 30 mg PO DAILY 08/26/18 [History Confirmed 08/26/18] Fiber Laxative (methylcellulo) 500 mg PO BID 08/26/18 [History Confirmed 08/26/18] Hemp 170 mg PO DAILY 08/26/18 [History Confirmed 08/26/18] Lantus Solostar U-100 Insulin 50 unit SUBCUT DAILY 08/26/18 [History Confirmed 08/26/18] aspirin [Aspir-81] 81 mg PO DAILY 08/26/18 [History Confirmed 08/26/18] atorvastatin 40 mg PO DAILY 08/26/18 [History Confirmed 08/26/18] fenofibrate nanocrystallized 145 mg PO DAILY 08/26/18 [History Confirmed 08/26/18] [id number]-vogld-3-rji-gpc-nnqewl [krill oil] 2 cap PO DAILY 08/26/18 [History Confirmed 08/26/18] metformin 500 mg PO BID 08/26/18 [History Confirmed 08/26/18] metoprolol succinate 25 mg PO DAILY 08/26/18 [History Confirmed 08/26/18] multivitamin 1 tab PO DAILY 08/26/18 [History Confirmed 08/26/18] omeprazole 20 mg PO HS 08/26/18 [History Confirmed 08/26/18] trazodone 100 mg PO HS 08/26/18 [History Confirmed 08/26/18] potassium chloride [Klor-Con M20] 20 meq PO QAM 30 Days #30 tab 08/29/18 [Rx] sacubitril-valsartan [Entresto] 1 tab PO BID 30 Days #60 tab 08/29/18 [Rx] spironolactone 25 mg PO QAM 30 Days #30 tab 08/29/18 [Rx] torsemide 20 mg PO BID 30 Days #60 tab 08/29/18 [Rx] Home Medications Sodium Chloride (Nss 1000ml) 1,000 mls @ 50 mls/hr IV .Q20H STA Stop: 09/06/18 11:24 Last Admin: 09/05/18 15:34 Dose: 50 mls/hr Documented by: Amiodarone HCl/Dextrose (Nexterone / D5w) 360 mg in 200 mls @ 16.667 mls/hr IV .Q12H LOLLY Stop: 10/05/18 21:39 Amiodarone HCl/Dextrose (Nexterone / D5w) 360 mg in 200 mls @ 33.333 mls/hr IV .Q6H LOLLY Stop: 09/05/18 21:44
[2018-09-05 15:52] LABS: INR 1.2 (0.9-1.1); Partial Thromboplastin Ratio 0.8; Partial Thromboplastin Time 22.9 Seconds (21.0-31.0); Prothrombin Time 11.9 Seconds (9.0-12.0)
[2018-09-05] MEDS ORDERED: HEPARIN SOD (PORCINE) 1000 UNIT/ML 10 ML VIAL ONE (15:55)
[2018-09-05 15:56] LABS: Albumin Level 3.9 gm/dl (3.4-5.0); BUN Creatinine Ratio 22.7 (10-20); Calcium 9.6 mg/dl (8.5-10.1); Creatinine Clr Calc Pharmacy 59.2 ml/min; Est GFR (African American) 58.4; Est GFR (Non-African American) 50.3
[2018-09-05] MEDS ORDERED: HEPARIN 25000 UNIT/500 ML D5W IV ONE (15:56)
[2018-09-05] MEDS ORDERED: PROMETHAZINE 12.5 MG/50.5 ML BAG IV STA (16:00)
[2018-09-05 16:06] LABS: Albumin Globulin Ratio 1.1 (0.9-2); Bilirubin,Total 0.6 mg/dl (0.2-1); Globulin 3.5 gm/dl (2.5-4.0); Total Protein 7.4 gm/dl (6.4-8.2)
[2018-09-05] MEDS ORDERED: PROMETHAZINE HCL INJ 25 MG/ML 1 ML VIAL ONE (16:07)
[2018-09-05] MEDS ORDERED: ETOMIDATE 2 MG/ML 20 ML VIAL IV ONE ×2 (16:11→16:12)
--- NOTE | 2018-09-05 16:13 | Emergency Department Note ---
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 Patient states that he was seen his cardiologists office today for follow up today about x3 hours prior to arrival when he began to feel unwell. He notes that he was recommended to report to ED after EKG reported Atrial flutter. Patient describes sx as dizziness, weakness and "feeling unwell". He notes he is having tightness in the upper abd, which is moderate in severity and has since resolved. Patient notes he was feeling nauseous and dizzy today, noting his dizziness has mildly improved. Patient notes he did feel well when waking up today, noting the last time he ate was this morning about x7 hours ago. He last drank a bottle of water about x1 hour ago. He notes yesterday he did have diarrhea, but denies any other compl aints. He shares he did receive a catherization last week, which showed enlarged heart. Patient shares that he did have surgery on the right ankle. Pt denies LOC, headache, fevers, chills, diaphoresis, visual changes, neck pain, breathing difficulties, nausea, vomiting, abdominal pain, back pain, melena, hematochezia, urinary symptoms, numbness, weakness, lymphadenopathy, rash, or other complaints. REVIEW OF SYSTEMS: See HPI for pertinent positives and negatives. A total of ten systems were reviewed and were otherwise negative. PMHx/PSHx: CAD, GERD, major depressive disorder, diabetes, HTN, hx of supraventricular tachycardia SOCIAL HISTORY: Patient lives at home. PHYSICAL EXAM: GENERAL: Awake, alert, mildly ill-appearing, in no distress HENT: Normocephalic, atraumatic. Oropharynx unremarkable. EYES: Normal conjunctiva. Sclera non-icteric. NECK: Inspection normal. Non-tender. Supple. No nuchal rigidity. FROM. No masses. RESPIRATORY: Clear to auscultation. No wheezes. No rales. Normal respiratory effort. CARDIAC: Tachycardic. Regular rhythm. No murmurs. No rubs. Extremities warm and well perfused. Pulses equal. No JVD. GI: Soft, non-distended. No tenderness to palpation. No rebound or guarding. No masses. RECTAL: Deferred. MUSCULOSKELETAL: Atraumatic. Chest examination reveals no tenderness. The back is symmetrical on inspection without obvious abnormality. There is no CVA tenderness to palpation. No joint edema. LOWER EXTREMITIES: Calves are equal size bilaterally and non-tender. No discoloration. Trace bilateral edema. NEURO: Normal sensorium. No sensory or motor deficits noted. SKIN: No rash or jaundice noted. EMERGENCY DEPARTMENT COURSE: 1442: Updated by [facility] Performance Analyst regarding patient case. 1516: The patient was evaluated in room A01, and a complete history and physical examination were performed. 1519: Discussed with Dr. Tolliver, anthropology department chair regarding patient case. 1535: Updated Dr. Tolliver on case, who recommends patient be started on heparin and amiodarone 1540: Reviewed clinical notes for patient. Doing well and is stable. Patient is agreeable for admission. 1618. Agreement of patient, anthropology department chair, nurse and ED physician in regards to conscious sedation. 1622: 10 mg of Etomidate given 1624: Electric external cardioversion completed. 1641: Discussed patient case with Snow Ledezma PA-C, for Dr. Machado, [facility] Hospitalist. She accepts patient for admission. 1703: Updated by nurse that patients HR has elevated to 122. Patient notes that he does not feel well at the moment. He denies any headaches, chest pains, numbness or tingling. Patient is feeling short of breath and restless. Per provider, patient is speaking clearly, no facial droop. Moving arms and legs. 1706: Patient has tachycardic HR of 118. BP 94/65 1706: Discussed with Dr. Tolliver regarding recent HR changes. Kelsea will see patient in A01. 1708: Repeat EKG 1710: Discussed case with Eladia Ball PA-C, and Dr. Flores, [facility] internal medicine, who are in patient room. 1719: Dr. Tolliver, cardiology, in patient room to reassess patient. Updated by ED provider regarding recent EKG changes. 1728: Discussed with Dr. Tolliver and Dr. Flores that patient will be admitted to ICU at [facility]. 1741: Reassessed patient. 1748: Discussed case with Dr. Tolliver, who recommends patient transfer to [facility] via helicopter. 175: Updated patient on plan to be flown to [facility]. Patient is agreeable to plan. 180: Updated regarding recent HR change. Repeat EKG. Dr. Tolliver notified and will be in patient room. Reinitiate cardioversion and Etomidate. 181: Discussed case with Dr. Sherwood, [facility] ICU Physician, and Dr. Tolliver, who are in patient room. 182: Dr. Sherwood updated patient on plan for central line. 1828: Dr. Sherwood performed central line in right internal jugular vein. 1831: Patients HR is 98. 1852: Updated flight crew on patient's case. 1900: Discussed patient case with family, who is on their way to [facility] MEDICAL DECISION MAKING: Triage Nursing notes reviewed and agree them. The patient's history was concerning for hypotension and tachycardia Differential diagnosis: Etiologies such as electrolyte abnormality, cardiac dysrhythmia, thyroid dysfunction, pulmonary embolism, infection, gastrointestinal, as well as others were entertained. Physical examination: The patient was ill. ER treatment provided: Cardiac monitoring. Procedural sedation with cardioversion IV amiodarone Gentle hydration with normal saline On reassessment the patient felt better. Diagnostic interpretation by me: Ultimately ECGs were performed. Please see below. The patient had several different rhythms occur in the emergency department including a flutter as well as a wide-complex tachycardia. The labs revealed an unremarkable CBC. Chemistry panel revealed a potassium at the upper limits of normal. Creatinine mildly elevated at 1.48. The patient's glucose is mildly elevated as well. His troponin is borderline elevated. Imaging studies: Chest x-ray performed without any evidence of pulmonary edema or pneumonia. Consultation: Consultation was made with [facility] cardiology, Dr. Inocencio tolliver and [facility] medicine. Patient was also seen by intensive care medicine, Dr. Huber Sherwood as well as interventional cardiology, Dr. Jara. Cardiology contacted [facility]. Given the patient's issues they felt transfer to tertiary care was most appropriate. The patient was accepted. Patient consented to transfer. Helicopter transport was initiated. Due to the patient's unstable nature interventional cardiology did take the patient to the catheterization suite for balloon pump placement. PROCEDURE: First Procedure: 1621: The planned sedation has been discussed with the patient. Informed Consent was obtained. I have identified the patient, determined the appropriateness of sedation and have assessed the patient immediately prior to the procedure. All medicine(s) and interventions are by my order. Procedural Sedation Indication: Atrial flutter. Total time: 15 minutes Written consent was obtained after the risks and benefits were explained to the patient, including, but not limited to aspiration, allergic reaction, breathing difficulties, cardiac complications, vomiting, pain, event recall, bleeding, and/or infection. Pre-sedation examination and paperwork completed. The patient was on 100% oxygen via NRB prior to the procedure. Continuous end tidal CO2 monitoring, pulse oximetry, and cardiac monitoring were utilized. Suction, airway equipment, medications, respiratory equipment, and appropriate personnel were prepared prior to the initiation of the procedure. A time out was taken. S edation was achieved utilizing 10 mg of Etomidate. After I observed the patient had reached the appropriate level of sedation the main procedure was performed without complication. Sedation was discontinued and the monitoring continued. The patient recovered quickly from the effects of the medication without complication or adverse event. CRITICAL CARE: I have personally spent greater than 180 minutes of critical care time in the direct management of this patient. This includes bedside care, interpretation of diagnostic studies, and testing, discussion with consultants and patient, and other required patient management activities. This 180 minutes is in excess of all separately billable procedures. 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 Impression & Plan Atrial flutter with rapid ventricular response Past Med/Surg History Medical History CAD (coronary artery disease) (Chronic) Idiopathic cardiomyopathy (Chronic) Hx of supraventricular tachycardia (Chronic) MDD (major depressive disorder) (Chronic) GERD (gastroesophageal reflux disease) (Chronic) Hyperlipidemia (Chronic) Type 2 diabetes mellitus (Chronic) Hypertension (Chronic) Surgical History Fracture of fibula, proximal (Resolved) s/p repair Family History Other Heart disease Hypertension Social History Preferred Language: Bhutanese Beliefs That Will Affect Care: None marital status: Current Living Situation: Alone Current Living Situation Comment: live alone current occupational status: unemployed Feels Safe at Home: Yes Smoking Status: Never smoker Hx Alcohol Use: Yes Hx Substance Use: No Results & Data Vital Signs Vital Signs - 24 hr 09/05/18 15:21 09/05/18 15:32 09/05/18 15:33 Temperature 36.6 C Temperature Source Oral Sepsis Recent Fever Within 48 Hours No Sepsis New/Unexplained Change in Mental Status No Sepsis Action Taken by Nursing No Action Required End-Tidal CO2 End Tidal CO2 (18-54mmHg) Pulse Rate 136 H 135 H Pulse Rate from SpO2 Sensor 137 H Respiratory Rate 18 18 Blood Pressure 111/77 109/82 Blood Pressure [Right Arm] Blood Pressure Mean 88 91 Pulse Oximetry 98 98 94 Oxygen Delivery Method Room Air Oxygen Flow Rate 09/05/18 15:50 09/05/18 15:52 09/05/18 15:56 Temperature Temperature Source Sepsis Recent Fever Within 48 Hours Sepsis New/Unexplained Change in Mental Status Sepsis Action Taken by Nursing End-Tidal CO2 End Tidal CO2 (18-54mmHg) Pulse Rate 136 H 135 H 128 H Pulse Rate from SpO2 Sensor 68 67 71 Respiratory Rate 18 19 20 Blood Pressure 99/71 L 99/71 L 99/74 L Blood Pressure [Right Arm] Blood Pressure Mean 80 80 82 Pulse Oximetry 97 97 99 Oxygen Delivery Method Oxygen Flow Rate 2 2 09/05/18 15:58 09/05/18 16:01 09/05/18 16:05 Temperature Temperature Source Sepsis Recent Fever Within 48 Hours Sepsis New/Unexplained Change in Mental Status Sepsis Action Taken by Nursing End-Tidal CO2 End Tidal CO2 (18-54mmHg) Pulse Rate 129 H 126 H Pulse Rate from SpO2 Sensor 129 H 63 63 Respiratory Rate 20 23 Blood Pressure 94/63 L 83/71 L 94/63 L Blood Pressure [Right Arm] Blood Pressure Mean 73 75 73 Pulse Oximetry 98 98 98 Oxygen Delivery Method Oxygen Flow Rate 2 2 2 09/05/18 16:10 09/05/18 16:18 09/05/18 16:19 Temperature Temperature Source Sepsis Recent Fever Within 48 Hours Sepsis New/Unexplained Change in Mental Status Sepsis Action Taken by Nursing End-Tidal CO2 16 End Tidal CO2 (18-54mmHg) 29 Pulse Rate 127 H 129 H 128 H Pulse Rate from SpO2 Sensor 66 91 H Respiratory Rate 19 18 Blood Pressure 90/65 L 91/64 L Blood Pressure [Right Arm] 91/64 L Blood Pressure Mean 73 73 Pulse Oximetry 98 100 100 Oxygen Delivery Method Non-rebreather Oxygen Flow Rate 2 15 09/05/18 16:20 09/05/18 16:21 09/05/18 16:22 Temperature Temperature Source Sepsis Recent Fever Within 48 Hours Sepsis New/Unexplained Change in Mental Status Sepsis Action Taken by Nursing End-Tidal CO2 32 13 End Tidal CO2 (18-54mmHg) 29 Pulse Rate 129 H 127 H 130 H Pulse Rate from SpO2 Sensor 129 H 105 H Respiratory Rate 18 Blood Pressure 94/72 L Blood Pressure [Right Arm] 94/72 L Blood Pressure Mean 79 Pulse Oximetry 100 98 100 Oxygen Delivery Method Non-rebreather Oxygen Flow Rate 15 09/05/18 16:25 09/05/18 16:30 09/05/18 16:31 Temperature Temperature Source Sepsis Recent Fever Within 48 Hours Sepsis New/Unexplained Change in Mental Status Sepsis Action Taken by Nursing End-Tidal CO2 16 End Tidal CO2 (18-54mmHg) 20 Pulse Rate 98 H 100 H 99 H Pulse Rate from SpO2 Sensor 98 H 100 H Respiratory Rate 20 20 Blood Pressure 96/64 L 83/70 L Blood Pressure [Right Arm] 96/64 L 83/70 L Blood Pressure Mean 74 74 Pulse Oximetry 100 100 100 Oxygen Delivery Method Non-rebreather Non-rebreather Oxygen Flow Rate 15 15 09/05/18 16:35 09/05/18 16:41 09/05/18 16:45 Temperature Temperature Source Sepsis Recent Fever Within 48 Hours Sepsis New/Unexplained Change in Mental Status Sepsis Action Taken by Nursing End-Tidal CO2 End Tidal CO2 (18-54mmHg) 8 Pulse Rate 98 H 99 H 101 H Pulse Rate from SpO2 Sensor 98 H 100 H Respiratory Rate 20 22 28 H Blood Pressure 97/68 L 106/89 Blood Pressure [Right Arm] 97/68 L 106/89 91/65 L Blood Pressure Mean 77 94 Pulse Oximetry 99 100 100 Oxygen Delivery Method Non-rebreather Non-rebreather Non-rebreather Oxygen Flow Rate 15 15 15 09/05/18 16:46 09/05/18 16:51 09/05/18 16:55 Temperature Temperature Source Sepsis Recent Fever Within 48 Hours Sepsis New/Unexplained Change in Mental Status Sepsis Action Taken by Nursing End-Tidal CO2 End Tidal CO2 (18-54mmHg) Pulse Rate 100 H 99 H 102 H Pulse Rate from SpO2 Sensor 101 H 99 H 102 H Respiratory Rate Blood Pressure 91/65 L 101/67 91/67 L Blood Pressure [Right Arm] Blood Pressure Mean 73 78 75 Pulse Oximetry 100 99 100 Oxygen Delivery Method Oxygen Flow Rate 15 09/05/18 17:01 09/05/18 17:05 09/05/18 17:13 Temperature Temperature Source Sepsis Recent Fever Within 48 Hours Sepsis New/Unexplained Change in Mental Status Sepsis Action Taken by Nursing End-Tidal CO2 End Tidal CO2 (18-54mmHg) Pulse Rate 100 H 119 H 115 H Pulse Rate from SpO2 Sensor 102 H 118 H 116 H Respiratory Rate Blood Pressure 98/62 L 94/65 L 94/72 L Blood Pressure [Right Arm] Blood Pressure Mean 74 74 79 Pulse Oximetry 99 98 99 Oxygen Delivery Method Oxygen Flow Rate 2.5 2.5 2.5 09/05/18 17:16 09/05/18 17:18 09/05/18 17:20 Temperature Temperature Source Sepsis Recent Fever Within 48 Hours Sepsis New/Unexplained Change in Mental Status Sepsis Action Taken by Nursing End-Tidal CO2 End Tidal CO2 (18-54mmHg) Pulse Rate 116 H 116 H 118 H Pulse Rate from SpO2 Sensor 116 H 115 H 117 H Respiratory Rate Blood Pressure 80/67 L 80/42 L 83/64 L Blood Pressure [Right Arm] Blood Pressure Mean 71 54 70 Pulse Oximetry 98 98 98 Oxygen Delivery Method Oxygen Flow Rate 2.5 2.5 4 09/05/18 17:25 09/05/18 17:31 09/05/18 17:35 Temperature Temperature Source Sepsis Recent Fever Within 48 Hours Sepsis New/Unexplained Change in Mental Status Sepsis Action Taken by Nursing End-Tidal CO2 End Tidal CO2 (18-54mmHg) Pulse Rate 116 H 119 H 116 H Pulse Rate from SpO2 Sensor 117 H 118 H 118 H Respiratory Rate Blood Pressure 96/69 L 80/63 L 82/66 L Blood Pressure [Right Arm] Blood Pressure Mean 78 68 71 Pulse Oximetry 98 99 99 Oxygen Delivery Method Oxygen Flow Rate 4 09/05/18 17:40 09/05/18 17:45 09/05/18 17:53 Temperature Temperature Source Sepsis Recent Fever Within 48 Hours Sepsis New/Unexplained Change in Mental Status Sepsis Action Taken by Nursing End-Tidal CO2 End Tidal CO2 (18-54mmHg) Pulse Rate 117 H 119 H 117 H Pulse Rate from SpO2 Sensor 117 H 119 H 117 H Respiratory Rate Blood Pressure 91/75 L 83/65 L 90/71 L Blood Pressure [Right Arm] Blood Pressure Mean 80 71 77 Pulse Oximetry 99 100 100 Oxygen Delivery Method Oxygen Flow Rate 09/05/18 17:55 09/05/18 18:00 09/05/18 18:06 Temperature Temperature Source Sepsis Recent Fever Within 48 Hours Sepsis New/Unexplained Change in Mental Status Sepsis Action Taken by Nursing End-Tidal CO2 End Tidal CO2 (18-54mmHg) Pulse Rate 117 H 112 H 111 H Pulse Rate from SpO2 Sensor 118 H 111 H 111 H Respiratory Rate Blood Pressure 103/92 87/63 L 103/72 Blood Pressure [Right Arm] Blood Pressure Mean 95 71 82 Pulse Oximetry 99 99 100 Oxygen Delivery Method Oxygen Flow Rate 09/05/18 18:10 09/05/18 18:11 09/05/18 18:14 Temperature Temperature Source Sepsis Recent Fever Within 48 Hours Sepsis New/Unexplained Change in Mental Status Sepsis Action Taken by Nursing End-Tidal CO2 21 30 21 End Tidal CO2 (18-54mmHg) Pulse Rate 112 H 112 H 112 H Pulse Rate from SpO2 Sensor 112 H 112 H 112 H Respiratory Rate Blood Pressure 86/68 L 96/68 L Blood Pressure [Right Arm] Blood Pressure Mean 74 77 Pulse Oximetry 100 100 100 Oxygen Delivery Method Oxygen Flow Rate 09/05/18 18:15 09/05/18 18:26 09/05/18 18:30 Temperature Temperature Source Sepsis Recent Fever Within 48 Hours Sepsis New/Unexplained Change in Mental Status Sepsis Action Taken by Nursing End-Tidal CO2 26 19 15 End Tidal CO2 (18-54mmHg) Pulse Rate 113 H 109 H 99 H Pulse Rate from SpO2 Sensor 113 H 110 H 100 H Respiratory Rate Blood Pressure 93/62 L 91/78 L 94/76 L Blood Pressure [Right Arm] Blood Pressure Mean 72 82 82 Pulse Oximetry 100 100 100 Oxygen Delivery Method Oxygen Flow Rate 15 15 Home Medications Current Medication List: was personally reviewed by me Laboratory Data Attestation: I reviewed the patient's lab results. Result diagrams: 09/05/18 15:25 09/05/18 15:25 Lab Results 09/05/18 09/05/18 09/05/18 Range/Units 15:25 15:25 15:25 WBC 9.30 (4.8-10.8) K/uL RBC 4.87 (4.7-6.1) M/uL Hgb 14.9 (14.0-18.0) g/dL POC Hgb (14.0-18.0) g/dl Hct 44.6 (42-52) % POC Hct (42-52) % MCV 91.6 (80-100) fL MCH 30.6 (25-34) pg MCHC 33.4 (32-36) g/dL RDW Std Deviation 45.8 (36.4-46.3) fL RDW Coeff of Cori 13.6 (11.5-14.5) % Plt Count 222 (130-400) K/uL MPV 10.4 (7.4-10.4) fL Immature Gran % (Auto) 0.2 % Neut % (Auto) 61.0 % Lymph % (Auto) 32.2 % Mesa % (Auto) 5.1 % Eos % (Auto) 1.3 % Baso % (Auto) 0.2 % Immature Gran # (Auto) 0.02 (0.00-0.02) K/uL Neut # (Auto) 5.68 (1.4-6.5) K/uL Lymph # (Auto) 2.99 (1.2-3.4) K/uL Mesa # (Auto) 0.47 (0.11-0.59) K/uL Eos # (Auto) 0.12 (0-0.5) K/uL Baso # (Auto) 0.02 (0-0.2) K/uL PT 11.9 (9.0-12.0) Seconds INR 1.2 H (0.9-1.1) APTT 22.9 (21.0-31.0) Seconds PTT Ratio 0.8 Activ Coag Time Kaolin (94-140) SECONDS POC Sodium (135-144) mEq/L Sodium 132 L (136-145) mmol/L POC Potassium (3.3-5.0) mEq/L Potassium 5.0 (3.5-5.1) mmol/L POC Chloride (101-112) mEq/L Chloride 101 (98-107) mmol/L Carbon Dioxide 22 (21-32) mmol/L POC Total CO2 (24-31) mEq/l Anion Gap 9.0 (3-11) POC Anion Gap (16-25) mmol/L POC BUN (7-18) mg/dl BUN 34 H (7-18) mg/dl Creatinine 1.48 H (0.6-1.4) mg/dl POC Creatinine (0.6-1.3) mg/dl Est Cr Clr Drug Dosing 59.2 ml/min Est GFR ( Amer) 58.4 Est GFR (Non-Af Amer) 50.3 BUN/Creatinine Ratio 22.7 H (10-20) Glucose 194 H (70-99) mg/dl POC Glucose (other) (70-99) mg/dl Calcium 9.6 (8.5-10.1) mg/dl POC Ioniz Calcium Marissa (1.12-1.32) mmol/l Magnesium 2.0 (1.8-2.4) mg/dl Total Bilirubin 0.6 (0.2-1) mg/dl AST 36 (15-37) U/L ALT 46 (12-78) U/L Alkaline Phosphatase 46 (45-117) U/L Total Protein 7.4 (6.4-8.2) gm/dl Albumin 3.9 (3.4-5.0) gm/dl Globulin 3.5 (2.5-4.0) gm/dl Albumin/Globulin Ratio 1.1 (0.9-2) TSH 1.880 (0.300-4.500) uIu/ml Lyme Disease IgG Ab (Negative) Lyme Disease IgM Ab (Negative) 09/05/18 09/05/18 09/05/18 Range/Units 15:25 15:30 18:06 WBC (4.8-10.8) K/uL RBC (4.7-6.1) M/uL Hgb (14.0-18.0) g/dL POC Hgb 16.0 (14.0-18.0) g/dl Hct (42-52) % POC Hct 47 (42-52) % MCV (80-100) fL MCH (25-34) pg MCHC (32-36) g/dL RDW Std Deviation (36.4-46.3) fL RDW Coeff of Cori (11.5-14.5) % Plt Count (130-400) K/uL MPV (7.4-10.4) fL Immature Gran % (Auto) % Neut % (Auto) % Lymph % (Auto) % Mesa % (Auto) % Eos % (Auto) % Baso % (Auto) % Immature Gran # (Auto) (0.00-0.02) K/uL Neut # (Auto) (1.4-6.5) K/uL Lymph # (Auto) (1.2-3.4) K/uL Mesa # (Auto) (0.11-0.59) K/uL Eos # (Auto) (0-0.5) K/uL Baso # (Auto) (0-0.2) K/uL PT (9.0-12.0) Seconds INR (0.9-1.1) APTT (21.0-31.0) Seconds PTT Ratio Activ Coag Time Kaolin 158 H (94-140) SECONDS POC Sodium 133 L (135-144) mEq/L Sodium (136-145) mmol/L POC Potassium 5.1 H (3.3-5.0) mEq/L Potassium (3.5-5.1) mmol/L POC Chloride 99 L (101-112) mEq/L Chloride (98-107) mmol/L Carbon Dioxide (21-32) mmol/L POC Total CO2 22 L (24-31) mEq/l Anion Gap (3-11) POC Anion Gap 18.0 (16-25) mmol/L POC BUN 34 H (7-18) mg/dl BUN (7-18) mg/dl Creatinine (0.6-1.4) mg/dl POC Creatinine 1.3 (0.6-1.3) mg/dl Est Cr Clr Drug Dosing ml/min Est GFR ( Amer) Est GFR (Non-Af Amer) BUN/Creatinine Ratio (10-20) Glucose (70-99) mg/dl POC Glucose (other) 207 H (70-99) mg/dl Calcium (8.5-10.1) mg/dl POC Ioniz Calcium Marissa 1.20 (1.12-1.32) mmol/l Magnesium (1.8-2.4) mg/dl Total Bilirubin (0.2-1) mg/dl AST (15-37) U/L ALT (12-78) U/L Alkaline Phosphatase (45-117) U/L Total Protein (6.4-8.2) gm/dl Albumin (3.4-5.0) gm/dl Globulin (2.5-4.0) gm/dl Albumin/Globulin Ratio (0.9-2) TSH (0.300-4.500) uIu/ml Lyme Disease IgG Ab Negative (Negative) Lyme Disease IgM Ab Negative (Negative) Administered Medications Milrinone Lactate/Dextrose (Primacor/D5w) 20,000 mcg in 100 mls @ 11.678 mls/hr IV .Q8H34M [facility]; Protocol Stop: 10/05/18 20:14 Last Admin: 09/05/18 21:21 Dose: 0.375 mcg/kg/min, 11.7 mls/hr Documented by: [id number] Cosigned by: [id number] Discontinued Medications Amiodarone HCl/Dextrose (Nexterone / D5w) Confirm Administered Dose 150 mg IV .STK-MED ONE Stop: 09/05/18 15:41 Last Admin: 09/05/18 15:42 Dose: Not Given Documented by: [id number] Amiodarone HCl/Dextrose (Nexterone / D5w) Confirm Administered Dose 360 mg IV .STK-MED ONE Stop: 09/05/18 15:41 Last Admin: 09/05/18 15:42 Dose: Not Given Documented by: [id number] Amiodarone HCl/Dextrose (Nexterone / D5w) Confirm Administered Dose 150 mg IV .STK-MED ONE Stop: 09/05/18 18:21 Last Admin: 09/05/18 18:24 Dose: 150 mg Documented by: [id number] Cosigned by: [id number] Amiodarone HCl/Dextrose (Nexterone / D5w (Sanforizing Machine Operator Use Only)) Confirm Administered Dose 360 mg .ROUTE .STK-MED ONE Stop: 09/05/18 21:02 Last Admin: 09/05/18 21:22 Dose: 360 mg Documented by: [id number] Amiodarone HCl (Cordarone Iv Bolus / Drip) 1 ea IV NOW STA; Protocol Stop: 09/05/18 15:38 Last Admin: 09/05/18 17:26 Dose: Not Given Documented by: [id number] Etomidate (Amidate) Confirm Administered Dose 40 mg IV .STK-MED ONE Stop: 09/05/18 16:13 Last Increment: 09/05/18 17:27 Dose: 10 mg Documented by: [id number] Fentanyl Citrate (Fentanyl Citrate) Confirm Administered Dose 100 mcg .ROUTE .STK-MED ONE Stop: 09/05/18 18:27 Last Admin: 09/05/18 21:19 Dose: Not Given Documented by: [id number] Heparin Sodium (Porcine) (Heparin Iv Bolus) Confirm Administered Dose 10,000 units .ROUTE .STK-MED ONE Stop: 09/05/18 15:56 Last Admin: 09/05/18 16:02 Dose: 6,000 units Documented by: [id number] Cosigned by: [id number] Heparin Sodium (Porcine) (Heparin Iv Bolus (Sanforizing Machine Operator Use Only)) Confirm Administered Dose 10,000 units .ROUTE .STK-MED ONE Stop: 09/05/18 18:27 Last Admin: 09/05/18 21:20 Dose: 2,000 units Documented by: [id number] Heparin Sodium/Dextrose () 1 ea N/A NOW STA; Protocol Stop: 09/05/18 15:38 Last Admin: 09/05/18 17:26 Dose: Not Given Documented by: [id number] Heparin Sodium/Dextrose (Heparin Sodium/Dextrose) Confirm Administered Dose 25,000 units IV .STK-MED ONE Stop: 09/05/18 15:57 Last Admin: 09/05/18 16:01 Dose: 1,450 units Documented by: [id number] Cosigned by: [id number] Heparin Sodium/Sodium Chloride (Heparin/Nss 1000 Unit/500ml Flush Bag) Confirm Administered Dose 3,000 units IV .STK-MED ONE Stop: 09/05/18 18:28 Last Admin: 09/05/18 21:20 Dose: 3,000 units Documented by: [id number] Sodium Chloride (Nss 1000ml) 1,000 mls @ 50 mls/hr IV .Q20H STA Stop: 09/06/18 11:24 Last Admin: 09/05/18 15:34 Dose: 50 mls/hr Documented by: [id number] Amiodarone HCl/Dextrose (Nexterone / D5w) 150 mg in 100 mls @ 600 mls/hr IV ONE STA Stop: 09/05/18 15:46 Last Infusion: 09/05/18 17:30 Dose: 0 mls/hr Documented by: [id number] Cosigned by: [id number] Admin: 09/05/18 15:42 Dose: 600 mls/hr Documented by: [id number] Cosigned by: [id number] Amiodarone HCl/Dextrose (Nexterone / D5w) 360 mg in 200 mls @ 16.667 mls/hr IV .Q12H LOLLY Stop: 10/05/18 21:39 Last Infusion: 09/05/18 18:08 Dose: 0.5 mg/min, 16.7 mls/hr Documented by: [id number] Cosigned by: [id number] Infusion: 09/05/18 17:36 Dose: 0 mg/min, 0 mls/hr Documented by: [id number] Cosigned by: [id number] Admin: 09/05/18 16:02 Dose: 0.5 mg/min, 16.7 mls/hr Documented by: [id number] Cosigned by: [id number] Amiodarone HCl/Dextrose (Nexterone / D5w) 360 mg in 200 mls @ 33.333 mls/hr IV .Q6H LOLLY Stop: 09/05/18 21:44 Last Admin: 09/05/18 18:18 Dose: 1 mg/min, 33.3 mls/hr Documented by: [id number] Cosigned by: [id number] Heparin Sodium/Dextrose (Heparin Sodium/Dextrose) 25,000 units in 500 mls @ 29 mls/hr IV .[id number] LOLLY; Protocol Stop: 10/05/18 16:14 Last Admin: 09/05/18 17:27 Dose: Not Given Documented by: [id number] Promethazine HCl (Phenergan) 12.5 mg in 50.5 mls @ 202 mls/hr IV NOW STA Stop: 09/05/18 16:14 Last Admin: 09/05/18 17:30 Dose: Not Given Documented by: [id number] Midazolam HCl (Versed) Confirm Administered Dose 2 mg .ROUTE .STK-MED ONE Stop: 09/05/18 18:27 Last Admin: 09/05/18 21:20 Dose: Not Given Documented by: [id number] Nicardipine HCl (Cardene) Confirm Administered Dose 25 mg .ROUTE .STK-MED ONE Stop: 09/05/18 18:28 Last Admin: 09/05/18 21:20 Dose: 25 mg Documented by: [id number] Nitroglycerin/Dextrose (Nitroglycerin/D5w 100 Mcg/Ml 20ml Syringe) Confirm Administered Dose 2,000 mcg .ROUTE .STK-MED ONE Stop: 09/05/18 18:28 Last Admin: 09/05/18 21:21 Dose: 2,000 mcg Documented by: [id number] Norepinephrine Bitartrate (Levophed (Sanforizing Machine Operator Use Only)) Confirm Administered Dose 8 mg .ROUTE .STK-MED ONE Stop: 09/05/18 18:56 Last Admin: 09/05/18 21:21 Dose: 0.4 mg.per.kg Documented by: [id number] Promethazine HCl (Phenergan) Confirm Administered Dose 25 mg .ROUTE .STK-MED ONE Stop: 09/05/18 16:08 Last Admin: 09/05/18 16:09 Dose: 12.5 mg Documented by: [id number] Imaging Data Radiologist's Impression: XR chest 1V portable CLINICAL HISTORY: aflutter COMPARISON STUDY: 08/26/2018 FINDINGS: The heart is enlarged. There is mild central vascular prominence without evidence of overt failure. There is no lobar consolidation. There are no pleural effusions.[ IMPRESSION: Mild cardiomegaly. No evidence of focal pulmonary consolidation Electronically signed by: Fabian Woodward M.D. 09/05/2018 3:38 PM XR chest 1V portable CLINICAL HISTORY: cough COMPARISON STUDY: 09/05/2018 FINDINGS: The heart is enlarged. There is no overt failure. There is no focal pulmonary consolidation. There are no pleural effusions.[ IMPRESSION: Cardiomegaly. No acute findings. Electronically signed by: Fabian Woodward M.D. 09/05/2018 5:41 PM ECG Data Attestation: I personally reviewed and interpreted this ECG as follows: Indication: weakness Rate (beats per minute): 136 Rhythm: atrial flutter Findings: + other (nonspecific intraventricular conduction delay) and + nonspecific-ST abn Additional Comments: Post procedure EKG at 1628: Normal sinus rhythm at [address] elevation or ST depression. No PAC's or PVC. Compared to prior on 09/05/18, resolution of atrial flutter. Repeat EKG at 1708: Possible ectopic atrial tachycardia with 119 BPM. Left axis deviation with RBBB. LVH with repolarization. Compared to prior at 1628 on 09/05/18, atrial tachycardia has replaced sinus rhythm. Repeat EKG at 1719: wide complex tachycardia with 118 BPM, anterior and lateral T wave inversions, left axis deviation. Repeat EKG at 1802: wide complex tachycardia with 111 BPM, nonspecific interventricular block, anterolateral t wave inversions, which are more pronounced Repeat EKG at 1840: normal sinus rhythm at 94, resolution of t wave inversions, no PAC and no PVCs Blood Pressure Blood Pressure Findings: Low blood pressure Blood Pressure Disposition: further management by hospitalist Discharge Plan Visit Data *Final* Discharge Date/Time: 09/05/18 19:11 Chief Complaint: Cardiac Assessment Stated Complaint: CARDIAC ASSESSMENT ED Provider: Jak Maria Discharge Problem: Atrial flutter with rapid ventricular response Patient Disposition: Transfer Acute Care Hospital Discharge Instructions Interventions: ED Discharge Assessment Last Done: 09/05/18 19:11 Forms Stand Alone Forms: [facility] Prescriptions Prescriptions: No Action atorvastatin 40 mg tablet 40 mg PO DAILY RF: 0 trazodone 100 mg tablet 100 mg PO HS RF: 0 metoprolol succinate 25 mg tablet extended release 24 hr 25 mg PO DAILY RF: 0 metformin 500 mg tablet extended release 24 hr 500 mg PO BID RF: 0 fenofibrate nanocrystallized 145 mg tablet 145 mg PO DAILY RF: 0 [id number]-nwbole [krill oil] 700-68-81-50 mg Capsule 2 cap PO DAILY RF: 0 Cbd Oil 30 mg PO DAILY RF: 0 Hemp 170 mg PO DAILY RF: 0 multivitamin Tablet 1 tab PO DAILY RF: 0 aspirin [Aspir-81] 81 mg Tablet,Delayed Release (Dr/Ec) 81 mg PO DAILY RF: 0 Fiber Laxative (methylcellulo) 500 mg Tablet 500 mg PO BID RF: 0 omeprazole 20 mg Capsule,Delayed Release(Dr/Ec) 20 mg PO HS RF: 0 Lantus Solostar U-100 Insulin 100 unit/mL (3 mL) Insulin Pen 50 unit SUBCUT DAILY RF: 0 torsemide 20 mg Tablet 20 mg PO BID 30 Days Qty: 60 RF: 0 spironolactone 25 mg Tablet 25 mg PO QAM 30 Days Qty: 30 RF: 0 potassium chloride [Klor-Con M20] 20 mEq Tablet,Er Particles/Crystals 20 meq PO QAM 30 Days Qty: 30 RF: 0 Entresto 24-26 mg Tablet 1 tab PO BID 30 Days Qty: 60 RF: 0 Referrals Referrals: Annika Alfaro DO [Primary Care Provider] - The scribe's documentation has been prepared under my direction and personally reviewed by me in its entirety. I confirm that the note above accurately reflects all work, treatment, procedures, and medical decision making performed by me.
[2018-09-05] MEDS ORDERED: Heparin Adult STANDARD Wt-Based Dextrose 5% 25,000 units/500 mL IV SCH (16:15)
[2018-09-05] MEDS ORDERED: Heparin BOLUS **ED Use Only IV STA (16:16)
[2018-09-05 16:47] LABS: Lyme Ab IgG w/WB Rflx Negative (Negative); Lyme Ab IgM w/WB Rflx Negative (Negative)
--- NOTE | 2018-09-05 17:42 | XRay Report ---
XR chest 1V portable CLINICAL HISTORY: cough COMPARISON STUDY: 09/05/2018 FINDINGS: The heart is enlarged. There is no overt failure. There is no focal pulmonary consolidation . There are no pleural effusions.[ IMPRESSION: Cardiomegaly. No acute findings. Electronically signed by: Fabian Woodward M.D. 09/05/2018 5:41 PM
[2018-09-05] MEDS ORDERED: HEPARIN (PORCINE) 1000 UNIT/ML 10 ML (CATH LAB USE ONLY) ONE (18:26)
[2018-09-05] MEDS ORDERED: fentaNYL citrate 100 MCG/2 ML VIAL ONE (18:26)
[2018-09-05] MEDS ORDERED: MIDAZOLAM HCL 1 MG/ML 2ML VIAL ONE (18:26)
[2018-09-05] MEDS ORDERED: NiCARDipine HCL INJ 2.5 MG/ML 10 ML AMP ONE (18:27)
[2018-09-05] MEDS ORDERED: NITROGLYCERIN/D5W 100MCG/ML 20ML SYR ONE (18:27)
[2018-09-05] MEDS ORDERED: RAPID SEQUENCE INDUCTION BAG ONE (18:38)
[2018-09-05] MEDS ORDERED: NOREPINEPHRINE BITARTRATE 1 MG/ML 4 ML VIAL (CATH LAB USE ONLY) ONE (18:55)
[2018-09-05 18:59] VITALS: BP 94/76; PULSE 99; O2SAT 100
--- NOTE | 2018-09-05 19:02 | Procedure Note ---
Procedure Note Date of Service September 05, 2018 Procedure date: Noted above Procedure: Central venous access Pre-procedure indication: Hypotension, cardiogenic shock, possible need for temporary pacemaker Post-procedure Diagnosis: same as above Prior to Procedure: Informed Consent: The risks, benefits, indications, potential complications, and alternatives were explained to the the patient verbally and he verbally consented. This was also an emergent procedure Attending Staff: Rolanda Sherwood DO Resident/APC: Not applicable Skin Prep: Chlorhexidine Anesthesia: 4 mL 1% lidocaine without epinephrine The identity of the patient was confirmed and a bedside time out was performed. Description of Procedure: After sterile prep and sterile drape utilizing standard sterile technique the superficial skin of the right internal jugular area was anesthetized. The target vessel was identified via dynamic ultrasound guidance and entered with an 18-gauge needle. Dark venous blood return was noted. A guidewire was inserted through the needle and into the vessel. The needle was withdrawn and a skin bg was made. A tissue dilator was advanced via Seldinger technique and removed. A double lumen catheter was inserted via Seldinger technique and the guidewire removed. All ports chapin and flushed easily. A Biopatch was placed, and the catheter was secured via silk suture. A sterile dressing was then applied. Complications: None Estimated blood loss: Trace Patient tolerated the procedure well.
--- NOTE | 2018-09-05 19:12 | Cardioversion ---
Date of Service September 05, 2018 Electrical Cardioversion Rpt Electrical Cardioversion Report Procedure: Urgent external direct current cardioversion Indication: Atrial flutter with rapid ventricular response, hemodynamic instability Complications: None Estimated blood loss: None Procedural summary: Patient evaluated in the emergency department. Presented with atrial fibrillation and rapid ventricular response. Patient became progressively hypotensive and diaphoretic. Conscious sedation provided by ER physician. Defibrillator pads were placed in anterior and posterior position. When adequate sedation was achieved. The defibrillator was synced to the QRS complex. A single 100 J shock was delivered. Patient was successfully converted from atrial flutter to normal sinus rhythm. No complications. Patient tolerated well. Conclusion: Successful urgent external direct current cardioversion from atrial flutter to sinus rhythm.
[2018-09-05] MEDS ORDERED: MILRINONE LACTATE/D5W 20,000 MCG/100 ML BAG IV SCH (20:15)
[2018-09-05] MEDS ORDERED: AMIODARONE 360MG / 200ML D5W (CATH LAB USE ONLY) ONE (21:01)
--- NOTE | 2018-09-06 07:25 | Operative Report ---
DATE OF OPERATION: 09/05/2018 PORT-A-CATH INDICATIONS: Cardiogenic shock, hypotension, congestive heart failure, known LV systolic dysfunction with normal coronary arteries by cardiac catheterization 1 week earlier. PROCEDURE PERFORMED: Included right heart catheterization, placement of intra-aortic balloon pump, radiological interpretation and supervision. METHOD: Upon arrival in the laborer adjustable steel joist, the patient was prepped and draped in the usual sterile fashion. After local infiltration of 2% lidocaine, a 7-Dominican sheath was placed in the right femoral vein, an 8-Dominican sheath in the right femoral artery, both sheaths were aspirated and flushed. A 7-1/2-Dominican Hammett-Olivia catheter was advanced from the inferior vena cava to the right atrium, right ventricle, pulmonary artery, and pulmonary capillary wedge position. Pressure measurements were made at each point along the way. A 7-1/2-Dominican Maquet 50 mL intra-aortic balloon pump catheter was advanced from the right femoral artery to the proximal most portion of the descending thoracic aorta under fluoroscopic visualization where it was aspirated and flushed. After confirmation of adequate waveforms, it was purged and filled and placed to one-to-one counterpulsation and secured to the right groin and thigh. Sheaths were sutured to the right groin. Devices were sutured to the sheaths. The patient was transferred to an outside facility. COMPLICATIONS: None. Note medications during this procedure include intravenous heparin, intravenous Levophed, subcutaneous lidocaine. FINDINGS: Right atrial pressure is elevated on the order of 15-20 mmHg. Right ventricular pressure is 40/20 with a distinct square root morphology. PA pressure is 40/20 with a mean of 30. Pulmonary capillary wedge pressure is 35 mmHg. The Hammett-Olivia catheter was secured at 80 cm to the right femoral venous sheath hub. Intra-aortic balloon pump was placed at the proximal most portion of the descending thoracic aorta and secured to the right groin. IMPRESSION: Cardiogenic shock, pulmonary hypertension. I attest to the content of the Intraoperative Record and any orders documented therein. Any exception s are noted below.
--- NOTE | 2018-11-06 01:14 | Discharge Summary ---
ADMITTING DIAGNOSIS: Cardiogenic shock. DISCHARGE DIAGNOSES: Cardiogenic shock, congestive heart failure, hypotension. HOSPITAL COURSE: This 63-year-old white male presents with florid shortness of breath, lightheadedness, dizziness, presyncope. Past medical history is negative for coronary artery disease with negative cardiac catheterization 1 week earlier. Blood pressure on arrival was low and patient was somnolent and poorly perfused. The patient was taken to the cardiac catheterization lab where Elverta-Olivia catheter and intra-aortic balloon pump were placed. Medical therapy with Levophed was initiated while arrangements were being made for transport. The patient was transferred to a tertiary care center in improved condition.
== END 2018-09-05 21:07 | disposition short-term general hospital (02) | DRG 215 ==
LOC: ED 15:13
PROC: CLB.CRH (2018-09-05 18:40)
DX: I48.92 Unspecified atrial flutter; Z79.82 Long term (current) use of aspirin; I50.41 Acute combined systolic (congestive) and diastolic (congestive) heart failure; E78.5 Hyperlipidemia, unspecified; Z79.899 Other long term (current) drug therapy; Z82.49 Family history of ischemic heart disease and other diseases of the circulatory system; F32.9 Major depressive disorder, single episode, unspecified; I42.9 Cardiomyopathy, unspecified; I25.10 Atherosclerotic heart disease of native coronary artery without angina pectoris; E11.9 Type 2 diabetes mellitus without complications; Z79.4 Long term (current) use of insulin; I27.20 Pulmonary hypertension, unspecified; R57.0 Cardiogenic shock; I11.0 Hypertensive heart disease with heart failure; K21.9 Gastro-esophageal reflux disease without esophagitis